=== PATIENT | female | born 1975 | race African-American/Black ===

== ENCOUNTER 2023-07-14 16:00 | Emergency (ER) | payer SELFPAY ==
--- NOTE | ~2023-07-14 | CT_ITS ---
EXAMINATION: CT abdomen pelvis w con DATE: 07/14/2023 17:28 INDICATION: Abdominal pain. TECHNIQUE: Computed tomography (CT) of the abdomen and pelvis was performed with 100 mL Omnipaque 350 intravenous contrast. Automated exposure control and iterative reconstruction technique were employe d. The dose-length product was 733.77 mGy-cm. COMPARISON: None. FINDINGS: The visualized portions of lung bases demonstrate mild atelectasis. No pleural effusion. Th e heart size is normal. No pericardial effusion. The liver and spleen are normal. There are changes o f gastric sleeve procedure. There are changes of cholecystectomy. The pancreas, adrenal glands, and l eft kidney are normal. There is a 10 mm cyst in right kidney. There are no dilated loops of bowel. Th e appendix is normal. There are no pathologically enlarged lymph nodes. There is no free intraperiton eal fluid. There is mild thoracic and lumbar spondylosis. IMPRESSION: 1. No etiology for the patient's symptoms. Reviewed, dictated and finalized at location E.
[2023-07-14 16:26] VITALS: BP 119/75; PULSE 94; RESP 16; TEMP 36.5; O2SAT 100
--- NOTE | 2023-07-14 16:44 | ED.ABDPAIN ---
HPI - Abdominal Pain General Chief Complaint: Abdominal Pain Stated Complaint: abdominal pain Time Seen by Provider: 07/14/23 18:47 Focused HPI: GENERAL: Well-appearing, well-nourished, and in no acute distress. HEAD: Normocephalic, atraumatic. CHEST: Clear to auscultation. No respiratory distress. HEART: Regular rate and rhythm. NEURO: Alert and oriented x3. Patient screened in triage and initial orders placed. Additional care and disposition to be based upon diagnostic testing and treatment. 47-year-old female no medical problems presents to the emergency room for evaluation of diffuse periumbilical abdominal pain is been present for 1 month. Patient states that pain getting worse over the last few days. Patient describes the pain as sharp stabbing pain, that occasionally radiates into bilateral flanks and through to the back. Denies any nausea vomiting diarrhea constipation denies fevers. Has had a history of a gastric sleeve, and x2 C sections. Denies dizziness lightheadedness weakness. Denies chest pain shortness of breath. States has attempted to take [id number] pain medications with no relief. States pain is not worse after eating. Denies any alleviating factors. Related Data Allergies Allergy/AdvReac Type Severity Reaction Status Date / Time No Known Allergies Allergy Verified 07/14/23 19:20 Course Vital Signs Vital signs: Vital Signs Temperature 36.5 C 07/14/23 16:26 Pulse Rate 94 07/14/23 16:26 Respiratory Rate 16 07/14/23 16:26 Blood Pressure 119/75 07/14/23 16:26 Pulse Oximetry 100 07/14/23 16:26 Temperature 36.7 C 07/14/23 19:24 Pulse Rate 65 07/14/23 19:24 Respiratory Rate 16 07/14/23 19:24 Blood Pressure 118/85 07/14/23 19:24 Pulse Oximetry 99 07/14/23 19:24 MDM - Abdominal Pain Lab Data 07/14/23 16:42 07/14/23 16:42 Labs: Lab Results 07/14/23 07/14/23 Range/Units 16:42 16:55 WBC 6.3 (4.5-10.0) K/mm3 RBC 4.28 (4.2-5.4) M/mm3 Hgb 13.2 (12.0-15.0) g/dL Hct 38.8 (37.0-47.0) % MCV 90.7 (80-100) fl MCH 30.8 (26-34) pg MCHC 34.0 (32-36) g/dl RDW 13.9 (11.5-14.5) % Plt Count 282 (150-375) k/mm3 MPV 10.1 (7.4-10.4) fl Immature Gran % (Auto) 0.3 (0-0.5) % Neut % (Auto) 47.7 (45.5-73.1) % Lymph % (Auto) 38.0 (18.3-44.2) % [place] % (Auto) 10.7 H (2.6-8.5) % Eos % (Auto) 2.7 (0-4.4) % Baso % (Auto) 0.6 (0.2-1.2) % Lymph # (Auto) 2.38 (0.9-3.2) K/mm3 [place] # (Auto) 0.7 H (0.1-0.6) K/mm3 Eos # (Auto) 0.2 (0-0.3) K/mm3 Baso # (Auto) 0.0 (0.0-0.1) K/mm3 Abs Immat Gran (auto) 0.02 (0.00-0.031) K/mm3 Absolute Neuts (auto) 3.0 (1.3-6.7) K/mm3 Absolute Nucleated RBC 0.000 (0.0-0.012) K/mm3 Nucleated RBC % 0.0 (0.0-0.2) % Sodium 136 L (137-145) mmol/L Potassium 3.2 L (3.4-5.0) mmol/L Chloride 107 (98-107) mmol/L Carbon Dioxide 25 (22-30) mmol/L Anion Gap 4 (4-12) mmol/L BUN 12 (7-17) mg/dL Creatinine 0.70 (0.7-1.0) mg/dL Estim Creat Clear Calc 99 ml/min Estimated GFR > 60 (59 - ) Glucose 112 H (65-110) mg/dL Calcium 9.1 (8.4-10.2) mg/dL Total Bilirubin 0.3 (0.2-1.3) mg/dL AST 31 (14-36) U/L ALT 18 (6-35) U/L Alkaline Phosphatase 73 (38-126) U/L Total Protein 7.0 (6.3-8.2) g/dL Albumin 4.2 (3.5-5.1) g/dL Lipase 151 (23-300) U/L Urine Color Yellow (Yellow) Urine Appearance Clear (Clear) Urine pH 5.5 (5.0-9.0) Ur Specific [place] 1.024 (1.001-1.035) Urine Protein Negative (Negative) mg/dL Urine Glucose (UA) Negative (Negative) mg/dL Urine Ketones Trace H (Negative) mg/dL Ur Blood (Man) Negative (Negative) Urine Nitrate Negative (Negative) Urine Bilirubin Negative (Negative) Urine Urobilinogen 1.0 (<2.0) mg/dL Leukocyte Esterase Rfl Negative (Negative) MAICOL/UL Imaging Data Radiologist's impression: I
[2023-07-14 16:53] LABS: Basophils Percent Auto 0.6 % (0.2-1.2); Eosinophils Absolute Auto 0.2 K/mm3 (0-0.3); Eosinophils Percent Auto 2.7 % (0-4.4); Hematocrit 38.8 % (37.0-47.0); Hemoglobin 13.2 g/dL (12.0-15.0); Immature Granulocyte Absolute 0.02 K/mm3 (0.00-0.031); Immature Granulocyte Percent A 0.3 % (0-0.5); Lymphocytes Absolute Auto 2.38 K/mm3 (0.9-3.2); Mean Corpuscular Hemoglobin 30.8 pg (26-34); Mean Corpuscular Volume 90.7 fl (80-100); Mean Platelet Volume 10.1 fl (7.4-10.4); Monocytes Absolute Auto 0.7 K/mm3 (0.1-0.6); Monocytes Percent Auto 10.7 % (2.6-8.5); Neutrophils Percent Auto 47.7 % (45.5-73.1); Platelet Count Result 282 k/mm3 (150-375); Red Blood Count 4.28 M/mm3 (4.2-5.4); Red Cell Distribution Width 13.9 % (11.5-14.5); White Blood Count 6.3 K/mm3 (4.5-10.0)
[2023-07-14 17:04] LABS: Alanine Aminotransferase 18 U/L (6-35); Albumin Level 4.2 g/dL (3.5-5.1); Alkaline Phosphatase 73 U/L (38-126); Anion Gap 4 mmol/L (4-12); Aspartate Amino Transferase 31 U/L (14-36); Bilirubin,Total 0.3 mg/dL (0.2-1.3); Blood Urea Nitrogen 12 mg/dL (7-17); Calcium 9.1 mg/dL (8.4-10.2); Carbon Dioxide 25 mmol/L (22-30); Chloride 107 mmol/L (98-107); Estimated CRCL calculation 99 ml/min; Estimated Glomerular Filt Rate > 60; Glucose 112 mg/dL (65-110); Lipase 151 U/L (23-300); Potassium 3.2 mmol/L (3.4-5.0); Sodium 136 mmol/L (137-145)
[2023-07-14 17:12] LABS: Appearance Urine Clear (Clear); Bilirubin Urine Negative (Negative); Blood Urine Negative (Negative); Color Urine Yellow (Yellow); Glucose Urine UA Negative (Negative); Ketones Urine Trace mg/dL (Negative); Leukocyte Esterase Ur Negative LEU/UL (Negative); Nitrate Urine Negative (Negative); Protein Urine Negative (Negative); Specific Grav Ur 1.024 (1.001-1.035); pH Urine 5.5 (5.0-9.0)
[2023-07-14 17:26] LABS: Add Urine Microscopic? NO
[2023-07-14] MEDS: SODIUM CHLORIDE 0.9% IV 1,000 ML 999 ML IV CONT (18:06)
--- NOTE | 2023-07-14 18:52 | ED.ABDPAIN ---
HPI - Abdominal Pain General Chief Complaint: Abdominal Pain Stated Complaint: abdominal pain Time Seen by Provider: 07/14/23 18:47 History of Present Illness HPI narrative: 47 years old female came with the chief complaint of sharp stabbing pain at the mid abdomen over 1 month ago, usually last for few minutes then spontaneously gets better. The symptoms got worse of since yesterday. She denies any fever, chills vomiting diarrhea, constipation, vaginal bleeding or discharge. Patient denies aggravating or relieving factors, does not take meds at home, history of gastric sleeve 2020, does not smoke or drink or use drugs. Related Data Allergies Allergy/AdvReac Type Severity Reaction Status Date / Time No Known Allergies Allergy Verified 07/14/23 19:20 Review of Systems Review of Systems: All systems reviewed & are unremarkable except as noted in HPI and below Exam Narrative: General appearance: Well-developed, well-nourished Skin: Normal color Head: Normocephalic, nontraumatic Eyes: Clear conjunctiva ENT: Oropharynx normal, ears normal, nose normal Neck: Supple, nontender Chest and respiratory: Airway patent, no respiratory distress, no accessory muscle use Heart: Regular rate/rhythm Abdomen: Soft, Diffusely tender, no organomegaly, quiet bowel sounds Vascular: Normal peripheral pulses, normal capillary refill. Musculoskeletal: Normal range of motion, nontender back Neurologic: Alert and oriented ?3, [employer] is normal as tested, no gross motor deficit Course Vital Signs Vital signs: Vital Signs Temperature 36.5 C 07/14/23 16:26 Pulse Rate 94 07/14/23 16:26 Respiratory Rate 16 07/14/23 16:26 Blood Pressure 119/75 07/14/23 16:26 Pulse Oximetry 100 07/14/23 16:26 Temperature 36.5 C 07/14/23 16:26 Pulse Rate 94 07/14/23 16:26 Respiratory Rate 16 07/14/23 16:26 Blood Pressure 119/75 07/14/23 16:26 Pulse Oximetry 100 07/14/23 16:26 MDM - Abdominal Pain MDM Narrative Medical decision making narrative: patient presents with sharp abdominal pain, differential diagnosis include constipation, gastritis, pancreatitis, colitis, diverticulitis, stress try reaction Blood workup today showed no significant abnormality to explain patient condition, potassium is 3.2, [address] scan of the abdomen and pelvis showed no significant abnormality to explain patient condition Discharged on dicyclomine, Protonix and potassium supplement, follow-up with Dr. Rowland for further evaluation Patient works as OR nurse at [employer] the pt was discharged to home.the pt,s condition upon discharge was fair,education was provided to the pt in reference to the final impression,discharge study results,treatment,prognosis and need for follow up . Differential Diagnosis Differential diagnosis: Likely other ( as above) Medical Records Attestation: I reviewed the patient's medical records. Lab Data Attestation: I reviewed the patient's lab results. 07/14/23 16:42 07/14/23 16:42 Labs: Lab Results 07/14/23 07/14/23 Range/Units 16:42 16:55 WBC 6.3 (4.5-10.0) K/mm3 RBC 4.28 (4.2-5.4) M/mm3 Hgb 13.2 (12.0-15.0) g/dL Hct 38.8 (37.0-47.0) % MCV 90.7 (80-100) fl MCH 30.8 (26-34) pg MCHC 34.0 (32-36) g/dl RDW 13.9 (11.5-14.5) % Plt Count 282 (150-375) k/mm3 MPV 10.1 (7.4-10.4) fl Immature Gran % (Auto) 0.3 (0-0.5) % Neut % (Auto) 47.7 (45.5-73.1) % Lymph % (Auto) 38.0 (18.3-44.2) % [place] % (Auto) 10.7 H (2.6-8.5) % Eos % (Auto) 2.7 (0-4.4) % Baso % (Auto) 0.6 (0.2-1.2) % Lymph # (Auto) 2.38 (0.9
[2023-07-14] MEDS: Please add drug allergy info to patient profile. 1 EACH XX (19:21)
[2023-07-14] MEDS: POTASSIUM CHLORIDE 20 MEQ PACKET (FOR LIQUID) 40 MEQ PO (19:21)
[2023-07-14 19:24] VITALS: BP 118/85; PULSE 65; RESP 16; TEMP 36.7; O2SAT 99
== END 2023-07-14 19:47 | disposition home or self-care (01) ==
LOC: ANHED 19:41
PROVIDERS: Nurse Practitioner Family; Emergency Provider Emergency Medicine
DX: R10.9 Unspecified abdominal pain (principal); E87.6 Hypokalemia
CPT/HCPCS: 36415; 74177; 80053; 81003; 81025; 83690; 85025; 96360; 99284; A9270; J7030; Q9967

== ENCOUNTER 2025-03-24 06:04 | Emergency (ER) | payer OTHER, SELFPAY ==
[2025-03-24] VITALS (29 sets, daily range): BP systolic 91–124; BP diastolic 51–84; PULSE 70–86; RESP 12–21; TEMP 36.6; O2SAT 97–100
--- NOTE | ~2025-03-24 | US_ITS ---
EXAMINATION: US pelvic complete w TV DATE: 03/24/2025 09:26 INDICATION: Heavy vaginal bleeding TECHNIQUE: Multiple transabdominal and endovaginal sonographic images of the pelvis were obtained. COMPARISON: None. FINDINGS: The uterus measures 13.0 x 6.9 x 7.2 cm. There is thickening of the endometrial complex which measures 3.2 cm in thickness inclusive of a small amount of anechoic fluid in the fundal side of the endometrial canal and a 4.5 x 3.2 x 2.0 cm region of echogenic material without internal vascular flow more caudally in the endometrial canal which given the provided history of heavy vaginal bleeding likely represents clot. The endometrial complex measures approximately 1.3 cm exclusive of the endometrial fluid and internal echogenic material. section scar along the anterior lower uterine segment. Multiple anechoic nabothian cysts at the cervix. There is also a 3.5 x 3.0 x 2.4 cm heterogeneous cervical mass with internal vascular flow on color Doppler located to the right of the nabothian cysts. The right ovary measures 2.5 x 2.0 x 1.5 cm. The left ovary measures 3.3 x 3.1 x 2.6 cm. 2.1 x 1.7 cm anechoic cyst/follicle in the left ovary. Vascular flow identified in both ovaries on color Doppler. There is minimal amount of likely physiologic anechoic free fluid in the cul-de-sac. IMPRESSION: 1. 3.5 cm soft tissue mass at the cervix which could represent a cervical fibroid or malignancy. Recommend gynecologic evaluation. 2. Anechoic fluid and echogenic avascular material likely represent clot within the endometrial canal. Exclusive of the endometrial contents the endometrial complex measures 1.3 cm in thickness. Reviewed, dictated and finalized at location A. RN GREEK STUDIES PROFESSOR IMPRESSION: 1. 3.5 cm soft tissue mass at the cervix which could represent a cervical fibro id or malignancy. Recommend gynecologic evaluation. 2. Anechoic fluid and echogenic avascular material likely represent clot within the endometrial canal. Exclusive of the endometrial contents the endometrial c omplex measures 1.3 cm in thickness.
--- OUTSIDE RECORDS SUMMARY | 2025-03-24 06:06 | XMS_ITS | Continuity of Care Document ---
Author Organization [facility] (Adult [facility]) Address [address] [place] [address] Assessment No assessment recorded. Plan of Treatment Reminders Order Date Submit Date Provider Last Modified By Organization Details Last Modified Time Details Appointments ANY 30 2025 08:30A Lesly Donis MD Not available Not available Not available Lab TSH, ultra-sen sitive, serum 2024 025 [facility], [address] [place] [address], [address], [place], [address], 03/20/2025 11:14:05 FSH (follicle -stimulat ing hormone), serum 2024 025 [facility], [address], [address], [place], [address], 03/20/2025 11:14:05 estradiol , serum 2024 025 [facility], [address] [place], [place] [address], [address], [place], [address], 03/20/2025 11:14:06 CBC 2024 025 [facility], [address], [address], [place], [address], 03/19/2025 17:01:17 HCG, intact + beta subunit, quant, serum or plasma 2024 [facility], [address] [facility], [address], [place], [address], 03/20/2025 11:14:06 Referral None recorded. Procedures None recorded. Surgeries None recorded. Imaging US, pelvis, transabdo nirmal + transvagi nal 2024 [facility] ([facility]), [address], [place], [address], 03/20/2025 11:36:17 Medication Orders Naprosyn 500 mg tablet 2024 [id number], [address], [place], [place], [id number], 03/19/2025 14:29:29 Patient TargetsNo targets recorded. Patient InstructionsNo instructions recorded. Reason for Referral None Reported. Results Created Date Observation Date Name Description Value Unit Range Abnormal Flag Note LastModifiedBy Organization Detail LastModifiedTime 03/04/2003/05/2025 NUSWA B VG+, MARY ANN DA 6SP atopobium vaginae MODERA TE - 1 score Not Available [facility] ([facility]) [address] [place], [address], 03/06/2025 07:22:41 03/04/20 25 03/05/2025 NUSWA B VG+, MARY ANN DA 6SP bvab 2 MODERA TE - 1 score Not Available [facility] ([facility]) [address] [place], [address], 03/06/2025 07:22:41 03/04/20 25 03/05/2025 NUA B VG+, MARY ANN DA 6SP megasphaera 1 HIGH - 2 score abnormal Calcu late total score by jhoan ervin the 3 indiv idual bacte rial vagin osis (BV) marke r score s toget her. Total score is inter prete d as follo ws: Total score 0-1: Indic ates the absen ce of BV. Total score 2: Indet ermin ate for BV. Addit ional clini laurent data shoul d be evalu ated to estab ly gill. Total score 3-6: Indic ates the prese nce of BV. Not Available [facility] ([facility]) [address] [place], [address], 03/06/2025 07:22:41 03/04/20 25 03/05/2025 NUSWA B VG+, MARY ANN DA 6SP bill albicans, BONIFACIO NEGATI VE negati ve Not Available [facility] ([facility]) [address] [place], [address], 03/06/2025 07:22:41 03/04/20 25 03/05/2025 NUSWA B VG+, MARY ANN DA 6SP bill glabrata, BONIFACIO NEGATI VE negati ve Not Available [facility] ([facility]) [address] [place], [address], 03/06/2025 07:22:41 03/04/2003/06/2025 NUSWA B VG+, MARY ANN DA 6SP C parapsilosis /tropicalis NEGATI VE negati ve This assay does not diffe renti ate C. tropi calis and C. parap timi is. Not Available [facility] ([facility]) [address], [place], [address], 03/06/2025 07:22:41 03/04/20 25 03/06/2025 NUSWA B VG+, MARY ANN DA 6SP bill lusitaniae, BONIFACIO NEGATI VE negati ve Not Available [facility] ([facility]) [address] [place], [address], 03/06/2025 07:22:41 03/04/20 25 03/06/2025 NUSWA B VG+, MARY ANN DA 6SP bill krusei, BONIFACIO NEGATI VE negati ve Not Available [facility] ([facility]) [address], [place], [address], 03/06/2025 07:22:41 03/04/2003/06/2025 NUSWA B VG+, MARY ANN DA 6SP trich vag by BONIFACIO NEGATI VE negati ve Not Available [facility] ([facility]) [address], [place], [address], 03/06/2025 07:22:41 03/04/2003/06/2025 NUSWA B VG+, MARY ANN DA 6SP chlamydia trachomatis, BONIFACIO NEGATI VE negati ve Not Available [facility] ([facility]) [address], [place], [address], 03/06/2025 07:22:41 03/04/2003/06/2025 NUA B VG+, MARY ANN DA 6SP neisseria gonorrhoeae, BONIFACIO NEGATI VE negati ve Not Available [facility] ([facility]) [address], [place], [address], 03/06/2025 07:22:41 03/19/20 25 03/19/2025 CBC, PLATE LET, NO DIFFE RENTI AL WBC 5.7 x10e9 /L 4.0-10 .7 Not Available [facility] (Surgery Scheduling) [address] , [place], [address], 03/19/2025 17:01:17 03/19/20 25 03/19/2025 CBC, PLATE LET, NO DIFFE RENTI AL RBC 3.15 x10e1 2/L 3.90-5 .20 below low normal Not Available [facility] (Surgery Scheduling) [address], [place], [address], 03/19/2025 17:01:17 03/19/20 25 03/19/2025 CBC, PLATE LET, NO DIFFE RENTI AL hemoglobin 8.2 g/dL 11.9-1 5.8 below low normal Not Available [facility] (Surgery Scheduling) [address], [place], [address], 03/19/2025 17:01:17 03/19/20 25 03/19/2025 CBC, PLATE LET, NO DIFFE RENTI AL hematocrit 26.3 % 34.8-4 6.1 below low normal Not Available [facility] (Surgery Scheduling) [address], [place], [address], 03/19/2025 17:01:17 03/19/20 25 03/19/2025 CBC, PLATE LET, NO DIFFE RENTI AL MCV 83.5 fL 80.0-9 8.0 Not Available [facility] (Surgery Scheduling) [address], [place], [address], 03/19/2025 17:01:17 03/19/20 25 03/19/2025 CBC, PLATE LET, NO DIFFE RENTI AL MCH 26.0 pg 26.7-3 3.6 below low normal Not Available [facility] (Surgery Scheduling) [address], [place], [address], 03/19/2025 17:01:17 03/19/20 25 03/19/2025 CBC, PLATE LET, NO DIFFE RENTI AL MCHC 31.2 g/dL 31.7-3 6.3 below low normal Not Available [facility] (Surgery Scheduling) [address], [place], [address], 03/19/2025 17:01:17 03/19/20 25 03/19/2025 CBC, PLATE LET, NO DIFFE RENTI AL RDW 17.1 % 11.3-1 4.8 above high normal Not Available [facility] (Surgery Scheduling) [address], [place], [address], 03/19/2025 17:01:17 03/19/20 25 03/19/2025 CBC, PLATE LET, NO DIFFE RENTI AL platelets 429 x10e9 /L 150-42 0 above high normal Not Available [facility] (Surgery Scheduling) [address] , [place], [address], 03/19/2025 17:01:17 03/19/20 25 03/20/2025 TSH RFX ON ABNOR MAL TO FREE T4 TSH 0.931 uIU/m L 0.450- 4.500 Not Available [facility] ([facility]) [address] [place], [address], 03/20/2025 11:14:05 03/19/2003/20/2025 FSH FSH 6.3 mIU/m L Adult Femal e Range Folli cular phase 3.5 - 12.5 Ovula tion phase 4.7 - 21.5 Lutea l phase 1.7 - 7.7 Postm enopa usal 25.8 - 134.8 Not Available [facility] ([facility]) [address], [place], [address], 03/20/2025 11:14:05 03/19/20 25 03/20/2025 HCG,B ETA SUBUN IT, QNT HCG,beta subunit,qnt, serum <1 mIU/m L Femal e (Non- pregn ant) 0 - 5 (Post menop ausal ) 0 - 8 Femal e (Preg nant) Weeks of Gesta tion 3 6 - 71 4 10 - 750 5 385 - 6638 6 158 - 54800 7 1125 -1814 63 8 30900 -5673 71 9 36133 -6984 10 10 01530 -3930 77 12 74329 -7590 12 14 75154 - 84499 15 43939 - 22441 16 1785 - 02091 17 5770 - 85217 18 7217 - 22240 Jac ECLIA metho dolog y Not Available [facility] ([facility]) [address] [place], [address], 03/20/2025 11:14:06 03/19/2003/20/2025 ESTRA DIOL estradiol 115.0 pg/mL Adult Femal e Range Folli cular phase 12.5 - 166.0 Ovula tion phase 85.8 - 498.0 Lutea l phase 43.8 - 211.0 Postm enopa usal <6.0 - 54.7 Pregn bhanu 1st trime ster 215.0 - >4300 .0 Jac ECLIA metho dolog y Not Available [facility] ([facility]) [address], [place], [address], 03/20/2025 11:14:06 03/19/20 25 03/19/2025 CBC w/ auto diff WBC, auto, blood 5.7 text: 4.0 - 10.7 x10e9/ L Not Available Not Available 03/20/2025 16:33:52 03/19/20 25 03/19/2025 CBC w/ auto diff RBC count, blood 3.15 text: 3.90 - 5.20 x10e12 /L low Not Available Not Available 03/20/2025 16:33:52 03/19/20 25 03/19/2025 CBC w/ auto diff hemoglobin (Hb), blood 8.2 g/dL low: 11.9g/ dLhigh : 15.8g/ dL low Not Available Not Available 03/20/2025 16:33:52 03/19/20 25 03/19/2025 CBC w/ auto diff hematocrit, automated count, blood 26.3 % low: 34.8%h igh: 46.1% low Not Available Not Available 03/20/2025 16:33:52 03/19/20 25 03/19/2025 CBC w/ auto diff MCV, blood 83.5 fL low: 80fLhi gh: 98fL Not Available Not Available 03/20/2025 16:33:52 03/19/20 25 03/19/2025 CBC w/ auto diff MCH, qn, automated (obs) 26 pg low: 26.7pg high: 33.6pg low Not Available Not Available 03/20/2025 16:33:52 03/19/20 25 03/19/2025 CBC w/ auto diff MCHC, qn, automated (obs) 31.2 g/dL low: 31.7g/ dLhigh : 36.3g/ dL low Not Available Not Available 03/20/2025 16:33:52 03/19/20 25 03/19/2025 CBC w/ auto diff erythrocyte distribution width, ratio, automated (obs) 17.1 % low: 11.3%h igh: 14.8% high Not Available Not Available 03/20/2025 16:33:52 03/19/20 25 03/19/2025 CBC w/ auto diff platelets, auto, blood 429 text: 150 - 420 x10e9/ L high Not Available Not Available 03/20/2025 16:33:52 03/19/20 25 03/19/2025 CBC w/ auto diff platelet mean volume, qn, automated, blood (obs) 9.8 fL low: 7.8fLh igh: 11.4fL Not Available Not Available 03/20/2025 16:33:52 03/19/20 25 03/19/2025 CBC w/ auto diff neutrophils/ 100 leukocytes, automated, blood (obs) 44 % low: 41%hig h: 74% Not Available Not Available 03/20/2025 16:33:52 03/19/20 25 03/19/2025 CBC w/ auto diff lymphocytes/ 100 leukocytes, automated, blood (obs) 42.3 % low: 17%hig h: 47% Not Available Not Available 03/20/2025 16:33:52 03/19/20 25 03/19/2025 CBC w/ auto diff monocytes/10 0 leukocytes, automated, blood (obs) 9.5 % low: 3%high : 11% Not Available Not Available 03/20/2025 16:33:52 03/19/20 25 03/19/2025 CBC w/ auto diff eosinophils/ 100 leukocytes, automated, blood (obs) 2.8 % low: 0%high : 7% Not Available Not Available 03/20/2025 16:33:52 03/19/20 25 03/19/2025 CBC w/ auto diff basophils/10 0 leukocytes, automated, blood (obs) 1.2 % low: 0%high : 1.6% Not Available Not Available 03/20/2025 16:33:52 03/19/20 25 03/19/2025 CBC w/ auto diff immature granulocytes /100 leukocytes, automated, blood (obs) 0.2 % low: 0%high : 1% Not Available Not Available 03/20/2025 16:33:52 03/19/20 25 03/19/2025 CBC w/ auto diff neutrophil count, absolute (anc), blood (obs) 2.5 text: 1.60 - 7.50 x10e9/ L Not Available Not Available 03/20/2025 16:33:52 03/19/20 25 03/19/2025 CBC w/ auto diff lymphocytes, quantitative , blood, automated count (obs) 2.4 text: 1.00 - 4.40 x10e9/ L Not Available Not Available 03/20/2025 16:33:52 03/19/20 25 03/19/2025 CBC w/ auto diff monocytes, count, automated, blood (obs) 0.54 text: 0.15 - 1.00 x10e9/ L Not Available Not Available 03/20/2025 16:33:52 03/19/20 25 03/19/2025 CBC w/ auto diff eosinophils, quant, blood 0.16 text: 0.00 - 0.60 x10e9/ L Not Available Not Available 03/20/2025 16:33:52 03/19/20 25 03/19/2025 CBC w/ auto diff basophils, quant, auto, blood (obs) 0.07 text: 0.00 - 0.13 x10e9/ L Not Available Not Available 03/20/2025 16:33:52 03/19/20 25 03/19/2025 CBC w/ auto diff lab interpretati on Abnorm al Not Available Not Available 16:33:52 Result Notes None recorded. Procedures Surgical History Date Name Laterality Status Provider Name and Address Organization Details Recorded Time Gastric Bypass completed REGINALD Louis - [facility] 01/17/2023 15:45:13 [facility] 15:45:25 Imaging Results None recorded. Procedure Notes None recorded. Medical Equipment None Reported. Allergies No known drug allergies Medications Name Sig Start Date Stop Date Status Note LastModified by Organization Details LastModified Time ofloxacin 0.3 % eye drops INSTILL 2 TO 3 DROPS IN AFFECTED EYE TWICE DAILY 12/18 completed Not Available Not Available Not Available metronidazo le 500 mg tablet TAKE 1 TABLET BY MOUTH TWICE DAILY 03/19 completed Not Available Not Available Not Available sulfamethox azole 800 mg-trimetho prim 160 mg tablet TAKE 1 TABLET BY MOUTH TWICE DAILY FOR 5 DAYS 12/18 completed Not Available Not Available Not Available phenazopyri dine 100 mg tablet TAKE 2 TABLETS BY MOUTH THREE TIMES DAILY FOR 2 DAYS 07/09 completed Not Available Not Available Not Available cephalexin 500 mg capsule TAKE 1 CAPSULE BY MOUTH FOUR TIMES DAILY 07/09 completed Not Available Not Available Not Available oseltamivir 75 mg capsule TAKE 1 CAPSULE BY MOUTH TWICE DAILY active Not Available Not Available No t Available ergocalcife rol (vitamin D2) 1,250 mcg (50,000 unit) capsule TAKE 1 CAPSULE BY MOUTH EVERY 7 DAYS active Not Available Not Available No t Available Naprosyn 500 mg tablet one tab po bid with food 2024 active Not Available Not Available Not Avai lable nitrofurant oin monohydrate /macrocryst als 100 mg capsule TAKE 1 CAPSULE BY MOUTH EVERY 12 HOURS FOR 10 DAYS 03/19 completed Not Available Not Available Not Available Iron (ferrous sulfate) active Not Available Not Available Not Available tirzepatide 5 mg/0.5 mL subcutaneou s pen injector 5 mg subcu once a week 2024 active Not Available Not Available Not Avai lable Mounjaro 2.5 mg/0.5 mL subcutaneou s pen injector active Not Available Not Available Not Available Zepbound 5 mg/0.5 mL subcutaneou s pen injector ADMINISTE R 5 MG UNDER THE SKIN EVERY WEEK active Not Available Not Available No t Available Zepbound 2.5 mg/0.5 mL subcutaneou s pen injector ADMINISTE R 2.5 MG UNDER THE SKIN EVERY WEEK active Not Available Not Available No t Available Vitals Date Recorded Body height Body mass index (BMI) Body weight Respiratory rate Oxygen saturation Heart rate Body temperature Systolic And Diastolic Provider Name and Address Organization Details Last Updated DateTime 165.1 cm 31.5 kg/m2 14531.9 6 g 16 /min 100 % 90 /min 98.1 [degF] 116/70 mm[Hg] Crystal Szymanski MA [place] [facility] [place] 14:11:29 Social History Question Answer Notes LastModified by Organizat ion Details LastModified Time Tobacco Smoking Status Never Smoker Crystal Szymanski MA null, [facility] 01/17/2023 15:44:41 What Is Your Level Of Caffeine Consumption? Occasional Information not available 01/17/2023 What Was The Date Of Your Most Recent Tobacco Screening? 03/19/2025 Information not available 03/19/2025 Has Tobacco Cessation Counseling Been Provided? Yes [email or web address] Information not available 07/09/2024 On What Date Was Tobacco Cessation Counseling Provided? 03/19/2025 Information not available 03/19/2025 Sex: Unknown Functional Status Question Answer Note LastModified by Organizat ion Details LastModified Time Do you use any illicit or recreational drugs? No Information not available 01/17/2023 What is your level of alcohol consumption? None Information not available 01/17/2023 Mental Status None recorded. Family History Relationship Description Onset Age of this Age Resolved Age Notes LastModified by Organization Details LastModified Time Sister Malignant neoplasm of breast [email or web address] Not available 2022 15:42:23 Maternal Aunt Malignant neoplasm of cervix uteri [email or web address] Not available 15:42:50 Mother Malignant neoplasm of breast 55 [email or web address] Not available 2022 15:43:05 Maternal Grandfather Diabetes mellitus [email or web address] Not available 2022 15:43:45 Maternal Uncle Diabetes mellitus [email or web address] Not available 2022 15:43:45 Maternal Uncle Hypertensive disorder [email or web address] Not available 2022 15:44:15 Father Hypertensive disorder [email or web address] Not available 2022 15:44:05 Medical History Condition Response Coronary Artery Disease N Other N Atrial Fibrillation N High Blood Pressure N Thyroid Problems N Kidney or Bladder Problems N GI Problems N Depression N COPD N Blood Clots N Eating Disorder N Skin Problems N Anemia N Heart Attack (MT) N Diabetes N Anxiety Disorder N Muscle, Joint, or Bone Problems N Seizures/Epilepsy N Acid Reflux (GERD) N Cancer N Stroke N Asthma N Allergies N ADHD N Substance Abuse N High Cholesterol N Hepatitis N Liver Disease N Schizophrenia N Headaches N Osteoporosis N Heart Failure N Gynecological History Statement/Question Response Flow Heavy Date of LMP 01/01/2023 Frequency of Cycle (Q days) 28 Menses Monthly Y Date of Last Pap Smear Duration of Flow (days) 5 Current Control Method Tubal Ligat ion LMP Definite Obstetrics History GPAL:G 3 P 0 0 0 3 Type Value Multiple Births 0 Full Term 0 Induced 0 Spontaneous 0 Premature 0 Living 3 Ectopics 0 Total 3 Immunizations Vaccine Type Date Status Note Provider Nam e and Address Organization Details Recorded Time OPV, trivalent 8 completed Not Available Pending sale to [facility] 03/19/2025 14:03:59 DTP 8 completed Not Available [facility] 03/19/2025 14:03:59 DTP 8 completed Not Available [facility]ending sale to [facility] 03/19/2025 14:03:59 DTP 8 completed Not Available [facility]ending sale to [facility] 03/19/2025 14:03:59 OPV, trivalent 8 completed Not Available [facility]ending [facility] to [facility] 03/19/2025 14:03:59 MMR 0 completed Not Available [facility]ending [facility] to [facility] 03/19/2025 14:03:59 OPV, trivalent 0 completed Not Available [facility]ending [facility] to [facility] 03/19/2025 14:03:59 DTP 0 completed Not Available [facility]ending [facility] to [facility] 03/19/2025 14:03:59 Td (adult), 2 Lf tetanus toxoid, preservative free, adsorbed 1 completed Not Available [facility] to [facility] 03/19/2025 14:03:59 MMR 5 completed Not Available [facility] 03/19/2025 14:03:59 OPV, trivalent 5 completed Not Available [facility] 03/19/2025 14:03:59 Hep B, adult 1 completed Not Available [facility] 03/19/2025 14:03:59 Hep B, adult 2 completed Not Available [facility] 03/19/2025 14:03:59 Hep B, adult 3 completed Not Available [facility] 03/19/2025 14:03:59 Influenza, split virus, trivalent, preservative 3 completed [facility] 03/[facility] 14:03:59 Past Encounters Encounter ID Performer Location Encounter Start Date Encounter Closed Date Diagnosis/Indication Diagnosis SNOMED-CT Code Diagnosis ICD10 Code Diagnosis IMO Codes Diagnosis Note [id number] MD [facility]ery (Adult Med) [address] [place] [phone] 03/04/2025 14:19:58 03/07/2025 03:47:44 [id number] MD [facility] (Adult Med) [address] [place] [phone] 0 03/19/2025 14:00:26 03/20/2025 09:29:39 Menorrhagia 045408629 N92.0 [id number] Heavy vaginal bleeding and passing clots. Will check TSH to rule out thyroid issues and FSH and estradiol to check for perimenopa use. Will check CBC for anemia and to see if she would be a candidate for a transfusio n. Will have her try Naprosyn 500 mg BID with food. Will give her an excuse from work tomorrow. If the work up is negative for any systemic or anatomic cause would suspect this is due to perimenopa usal changes and we will discuss hormone treatment. If Naprosyn doesn't decrease the bleeding she will let me know. Health Concerns Section Related Observation LastModified by Organization Detai ls LastModified Time None Recorded Concern Status LastModified by Organization Details LastModified Time None Recorded Payers Encounter Date Sequence Insurance Name Policy Number Policy Doll Covered Member ID Doll Member ID Guarantor Name 03/19/2025 1 [place] [id number] Jennifer Pang [id number] 1 Jennifer Pang Notes Date Note Type Note Provider Name and Address Organization Details Recorded Time 03/19/2025 text/html ROS as noted in the HPI has missed a period before and came back heavy but not like this, didn't have a period in January, had a period on February, was spotty and then the picked up, changing pad about every three hours, today was in chair at work in office, bled on clothes, clots, headache, no dizziness, nonsmoker, no history of blood clots, Simran Donis MD Attn: Accounting,[address] [facility], [place], [address], [place] 03/19/2025 14:34:41 OBGyn Episode No OBEpisode recorded.
--- OUTSIDE RECORDS SUMMARY | 2025-03-24 06:06 | XMS_ITS | Data Portability ---
Author Organization [facility] Address [address] [place] [address] Assessment Encounter Date Assessment Date Assessment LastModified by Organization Details LastModified Time 01/22/2025 01/22/2025 Nuswab ordered. [email or web address] Not available 01/22/2025 18:11:35 03/04/2025 03/04/2025 Patient came in for a nuswab for vaginal odor [email or web address] Not available 03/05/2025 11:52:11 Plan of Treatment Reminders Order Date Submit Date Provider Last Modified By Organization Details Last Modified Time Details Appointments ANY 30 2025 08:30A Lesly Donis MD Not available Not available Not available Lab TSH, ultra-sen sitive, serum 2024 025 [facility], [address] [place] [address], [facility] [address], [place], [address], 03/20/2025 11:14:05 FSH (follicle -stimulat ing hormone), serum 2024 025 [facility], [address] [place] [address], [address], [place], [address], 03/20/2025 11:14:05 estradiol , serum 2024 025 [facility], [address] [place] [address], [address], [place], [address], 03/20/2025 11:14:06 CBC 2024 025 [facility], [address], [address], [place], [address], 03/19/2025 17:01:17 HCG, intact + beta subunit, quant, serum or plasma 2024 025 [facility], [address], [address], [place], [address], 03/20/2025 11:14:06 urinalysi s complete, reflex culture 2024 025 [facility], [address], [address], [place], [address], 07/17/2024 06:37:06 lipid panel, serum 2024 025 [facility], [address], [address], [place], [address], 06/06/2024 08:28:31 BMP, serum or plasma - fasting 2024 025 [facility], [address], [address], [place], [address], 06/06/2024 08:28:32 HbA1c (hemoglob in A1c), blood 2024 025 [facility], [address], [address], [place], [address], 06/06/2024 08:28:34 Referral plastic surgeon referral 2024 025 [facility], [address] [place] [address] [place], [address], 01/09/2025 14:43:03 Procedures None recorded. Surgeries None recorded. Imaging US, pelvis, transabdo nirmal + transvagi nal 2024 025 [facility] ([facility]), [address], [place], [address], 03/20/2025 11:36:17 MRI, breast, bilateral , w/wo contrast - mother and sister premenopa usal breast cancer 2024 025 ilesfl [facility], [address] [facility], [address], [address], 05/31/2024 12:32:34 Medication Orders Naprosyn 500 mg tablet 2024 025 [facility][id number], [address], [place], [place], [id number], 03/19/2025 14:29:29 tirzepati de 2.5 mg/0.5 mL subcutane ous pen injector 2024 025 [facility] #[id number], [address], [place], [place], [id number], 07/09/2024 11:26:14 tirzepati de 5 mg/0.5 mL subcutane ous pen injector 2024 025 [facility][id number], [address] [facility], [place], [place], [id number], 07/09/2024 11:26:13 Patient TargetsNo targets recorded. Patient InstructionsNo instructions recorded. Reason for Referral Plastic Surgeon Referral for Macromastia Referring Physician: Simran Donis, Family Medicine, Encounter Date: 07/09/2024 Results Created Date Observation Date Name Description Value Unit Range Abnormal Flag Note LastModifiedBy Organization Detail LastModifiedTime 06/06/19 25 06/06/2024 LIPID PANEL cholesterol, total 197 mg/dL 100-19 9 Not Available [facility] ([facility]) [address] [facility], [place], [address], 06/06/2024 08:28:31 06/06/19 25 06/06/2024 LIPID PANEL triglyceride s 93 mg/dL 0-149 Not Available [facility] ([facility]) [address] [place], [address], 06/06/2024 08:28:31 06/06/19 25 06/06/2024 LIPID PANEL HDL cholesterol 64 mg/dL >39 Not Available [facility] ([facility]) [address] [place], [address], 06/06/2024 08:28:31 06/06/19 25 06/06/2024 LIPID PANEL VLDL cholesterol laurent 17 mg/dL 5-40 Not Available [facility] ([facility]) [address] [place], [address], 06/06/2024 08:28:31 06/06/19 25 06/06/2024 LIPID PANEL LDL chol calc ([facility]) 116 mg/dL 0-99 above high normal Not Available [facility] ([facility]) [address] [place], [address], 06/06/2024 08:28:31 06/06/19 25 06/06/2024 BASIC METAB OLIC PANEL (8) glucose 81 mg/dL 70-99 Not Available [facility] ([facility]) [address] [place], [address], 06/06/2024 08:28:32 06/06/19 25 06/06/2024 BASIC METAB OLIC PANEL (8) BUN 9 mg/dL 6-24 Not Available [facility] ([facility]) [address] [place], [address], 06/06/2024 08:28:32 06/06/19 25 06/06/2024 BASIC METAB OLIC PANEL (8) creatinine 0.76 mg/dL 0.57-1 .00 Not Available [facility] ([facility]) [address] [facility], [place], [address], 06/06/2024 08:28:32 06/06/19 25 06/06/2024 BASIC METAB OLIC PANEL (8) eGFR 98 mL/mi n/1.7 3 >59 Not Available [facility] ([facility]) [address] [facility], [place], [address], 06/06/2024 08:28:32 06/06/19 25 06/06/2024 BASIC METAB OLIC PANEL (8) BUN/creatini ne ratio 12 9-23 Not Available [facility] ([facility]) [address] [facility], [place], [address], 06/06/2024 08:28:32 06/06/19 25 06/06/2024 BASIC METAB OLIC PANEL (8) sodium 138 mmol/ L 134-14 4 Not Available [facility] ([facility]) [address] [facility], [place], [address], 06/06/2024 08:28:32 06/06/19 25 06/06/2024 BASIC METAB OLIC PANEL (8) potassium 4.5 mmol/ L 3.5-5. 2 Not Available [facility] ([facility]) [address] [facility], [place], [address], 06/06/2024 08:28:32 06/06/19 25 06/06/2024 BASIC METAB OLIC PANEL (8) chloride 101 mmol/ L 96-106 Not Available [facility] ([facility]) [address] [facility], [place], [address], 06/06/2024 08:28:32 06/06/19 25 06/06/2024 BASIC METAB OLIC PANEL (8) carbon dioxide, total 23 mmol/ L 20-29 Not Available [facility] ([facility]) [address] [facility] [place], [address], 06/06/2024 08:28:32 06/06/19 25 06/06/2024 BASIC METAB OLIC PANEL (8) calcium 9.4 mg/dL 8.7-10 .2 Not Available [facility] ([facility]) [address] [facility], [place], [address], 06/06/2024 08:28:32 06/06/19 25 06/06/2024 HEMOG LOBIN A1C hemoglobin A1C 5.9 % 4.8-5. 6 above high normal Predi abete s: 5.7 - 6.4 Diabe brenda: >6.4 Glyce wendy contr ol for adult s with diabe brenda: <7.0 Not Available [facility] ([facility]) [address] [facility], [place], [address], 06/06/2024 08:28:34 07/17/19 25 07/17/2024 MICRO SCOPI C EXAMI NATIO N WBC None seen /hpf 0-5 Not Available [facility] ([facility]) [address] [facility], [place], [address], 07/17/2024 06:37:05 07/17/19 25 07/17/2024 MICRO SCOPI C EXAMI NATIO N RBC None seen /hpf 0-2 Not Available [facility] ([facility]) [address] [facility], [place], [address], 07/17/2024 06:37:05 07/17/19 25 07/17/2024 MICRO SCOPI C EXAMI NATIO N epithelial cells (non renal) 0-10 /hpf 0-10 Not Available [facility] ([facility]) [address] [facility], [place], [address], 07/17/2024 06:37:05 07/17/19 25 07/17/2024 MICRO SCOPI C EXAMI NATIO N casts None seen /lpf nonese en Not Available [facility] ([facility]) [address] [facility], [place], [address], 07/17/2024 06:37:05 07/17/19 25 07/17/2024 MICRO SCOPI C EXAMI NATIO N bacteria None seen nonese en/few Not Available [facility] ([facility]) [address] [facility], [place], [address], 07/17/2024 06:37:05 07/17/19 25 07/17/2024 UA/M W/RFL X CULTU RE, ROUTI NE specific gravity 1.008 1.005- 1.030 Not Available [facility] ([facility]) [address] [facility], [place], [address], 07/17/2024 06:37:06 07/17/19 25 07/17/2024 UA/M W/RFL X CULTU RE, ROUTI NE pH 6.0 5.0-7. 5 Not Available [facility] ([facility]) [address] [facility], [place], [address], 07/17/2024 06:37:06 07/17/19 25 07/17/2024 UA/M W/RFL X CULTU RE, ROUTI NE urine-color YELLOW yellow Not Available [facility] ([facility]) [address] [facility], [place], [address], 07/17/2024 06:37:06 07/17/19 25 07/17/2024 UA/M W/RFL X CULTU RE, ROUTI NE appearance CLEAR clear Not Available [facility] ([facility]) [address] [place], [address], 07/17/2024 06:37:06 07/17/19 25 07/17/2024 UA/M W/RFL X CULTU RE ROUTI NE WBC esterase NEGATI VE negati ve Not Available [facility] ([facility]) [address] [facility], [place], [address], 07/17/2024 06:37:06 07/17/19 25 07/17/2024 UA/M W/RFL X CULTU RE, ROUTI NE protein NEGATI VE negati ve/tra ce Not Available [facility] ([facility]) [address] [place], [address], 07/17/2024 06:37:06 07/17/19 25 07/17/2024 UA/M W/RFL X CULTU RE, ROUTI NE glucose NEGATI VE negati ve Not Available [facility] ([facility]) [address] [place], [address], 07/17/2024 06:37:06 07/17/19 25 07/17/2024 UA/M W/RFL X CULTU RE, ROUTI NE ketones NEGATI VE negati ve Not Available [facility] ([facility]) [address] [place], [address], 07/17/2024 06:37:06 07/17/19 25 07/17/2024 UA/M W/RFL X CULTU RE, ROUTI NE occult blood NEGATI VE negati ve Not Available [facility] ([facility]) [address] [place], [address], 07/17/2024 06:37:06 07/17/19 25 07/17/2024 UA/M W/RFL X CULTU RE, ROUTI NE bilirubin NEGATI VE negati ve Not Available [facility] ([facility]) [address] [place], [address], 07/17/2024 06:37:06 07/17/19 25 07/17/2024 UA/M W/RFL X CULTU RE, ROUTI NE urobilinogen ,semi-qn 0.2 mg/dL 0.2-1. 0 Not Available [facility] ([facility]) [address] [place], [address], 07/17/2024 06:37:06 07/17/19 25 07/17/2024 UA/M W/RFL X CULTU RE, ROUTI NE nitrite, urine NEGATI VE negati ve Not Available [facility] ([facility]) [address] [facility], [place], [address], 07/17/2024 06:37:06 07/17/19 25 07/17/2024 UA/M W/RFL X CULTU RE, ROUTI NE microscopic examination COMMEN T Micro scopi c follo ws if indic ated. Not Available [facility] ([facility]) [address] [facility], [place], [address], 07/17/2024 06:37:06 07/17/19 25 07/17/2024 UA/M W/RFL X CULTU RE, ROUTI NE microscopic examination SEE BELOW: Micro scopi c was indic ated and was perfo rmed. Not Available [facility] ([facility]) [address] [facility], [place], [address], 07/17/2024 06:37:06 07/17/19 25 07/17/2024 UA/M W/RFL X CULTU RE, ROUTI NE urinalysis reflex COMMEN T This speci men will not refle x to a Urine Cultu re. Not Available [facility] ([facility]) [address] [place], [address], 07/17/2024 06:37:06 01/22/20 25 01/23/2025 NUSWA B VG+, MARY ANN DA 6SP atopobium vaginae HIGH - 2 score abnormal Not Available [facility] ([facility]) [address] [place], [address], 01/24/2025 08:34:05 01/22/2001/23/2025 NUSWA B VG+, MARY ANN DA 6SP bvab 2 HIGH - 2 score abnormal Not Available [facility] ([facility]) [address] [place], [address], 01/24/2025 08:34:05 01/22/2001/23/2025 NUSWA B VG+, MARY ANN DA 6SP megasphaera [...] d be evalu ated to estab ly a diagn osis. Total score 3-6: Indic ates the prese nce of BV. Not Available [facility] ([facility]) [address] [place], [address], 01/24/2025 08:34:05 01/22/2001/23/2025 NUA B VG+, MARY ANN DA 6SP bill albicans, BONIFACIO NEGATI VE negati ve Not Available [facility] ([facility]) [address] [place], [address], 01/24/2025 08:34:05 01/22/2001/23/2025 NUA B VG+, MARY ANN DA 6SP bill glabrata, BONIFACIO NEGATI VE negati ve Not Available [facility] ([facility]) [address] [place], [address], 01/24/2025 08:34:05 01/22/2001/24/2025 NUA B VG+, MARY ANN DA 6SP C parapsilosis /tropicalis NEGATI VE negati ve This assay does not diffe renti ate C. tropi calis and C. parap timi is. Not Available [facility] ([facility]) [address] [place], [address], 01/24/2025 08:34:05 01/22/2001/24/2025 NUA B VG+, MARY ANN DA 6SP bill lusitaniae, BONIFACIO NEGATI VE negati ve Not Available [facility] ([facility]) [address] [facility] [place], [address], 01/24/2025 08:34:05 01/22/2001/24/2025 NUSWA B VG+, MARY ANN DA 6SP bill krusei, BONIFACIO NEGATI VE negati ve Not Available [facility] ([facility]) [address] [facility], [place], [address], 01/24/2025 08:34:05 01/22/2001/24/2025 NUSWA B VG+, MARY ANN DA 6SP trich vag by BONIFACIO NEGATI VE negati ve Not Available [facility] ([facility]) [address] [facility], [place], [address], 01/24/2025 08:34:05 01/22/2001/24/2025 NUA B VG+, MARY ANN DA 6SP chlamydia trachomatis, BONIFACIO NEGATI VE negati ve Not Available [facility] ([facility]) [address] [facility], [place], [address], 01/24/2025 08:34:05 01/22/2001/24/2025 NUA B VG+, MARY ANN DA 6SP neisseria gonorrhoeae, BONIFACIO NEGATI VE negati ve Not Available [facility] ([facility]) [address] [facility], [place], [address], 01/24/2025 08:34:05 03/04/20 25 03/05/2025 NUA B VG+, MARY ANN DA 6SP atopobium vaginae MODERA TE - 1 score Not Available [facility] ([facility]) [address] [place], [address], 03/06/2025 07:22:41 03/04/20 25 03/05/2025 NUSWA B VG+, MARY ANN DA 6SP bvab 2 MODERA TE - 1 score Not Available [facility] ([facility]) [address] [place], [address], 03/06/2025 07:22:41 03/04/20 25 03/05/2025 NUSWA B VG+, MARY ANN DA 6SP megasphaera [...] d be evalu ated to estab ly a diagn osis. Total score 3-6: Indic ates the prese nce of BV. Not Available [facility] ([facility]) [address] [facility], [place], [address], 03/06/2025 07:22:41 03/04/20 25 03/05/2025 NUA B VG+, MARY ANN DA 6SP bill albicans, BONIFACIO NEGATI VE negati ve Not Available [facility] ([facility]) [address] [place], [address], 03/06/2025 07:22:41 03/04/20 25 03/05/2025 NUA B VG+, MARY ANN DA 6SP bill glabrata, BONIFACIO NEGATI VE negati ve Not Available [facility] ([facility]) [address] [place], [address], 03/06/2025 07:22:41 03/04/2003/06/2025 NUA B VG+, MARY ANN DA 6SP C parapsilosis /tropicalis NEGATI VE negati ve This assay does not diffe renti ate C. tropi calis and C. parap timi is. Not Available [facility] ([facility]) [address] [place], [address], 03/06/2025 07:22:41 03/04/20 25 03/06/2025 NUA B VG+, MARY ANN DA 6SP bill lusitaniae, BONIFACIO NEGATI VE negati ve Not Available [facility] ([facility]) [address] [facility], [place], [address], 03/06/2025 07:22:41 03/04/2003/06/2025 NUSWA B VG+, MARY ANN DA 6SP bill krusei, BONIFACIO NEGATI VE negati ve Not Available [facility] ([facility]) [address] [facility], [place], [address], 03/06/2025 07:22:41 03/04/2003/06/2025 NUA B VG+, MARY ANN DA 6SP trich vag by BONIFACIO NEGATI VE negati ve Not Available [facility] ([facility]) [address] [facility], [place], [address], 03/06/2025 07:22:41 03/04/2003/06/2025 NUA B VG+, MARY ANN DA 6SP chlamydia trachomatis, BONIFACIO NEGATI VE negati ve Not Available [facility] ([facility]) [address] [facility], [place], [address], 03/06/2025 07:22:41 03/04/2003/06/2025 NUA B VG+, MARY ANN DA 6SP neisseria gonorrhoeae, BONIFACIO NEGATI VE negati ve Not Available [facility] ([facility]) [address] [facility], [place], [address], 03/06/2025 07:22:41 03/19/20 25 03/19/2025 CBC, PLATE LET, NO DIFFE RENTI AL WBC 5.7 x10e9 /L 4.0-10 .7 Not Available [facility] (Surgery Scheduling) [address], [place], [address], 03/19/2025 17:01:17 03/19/20 25 03/19/2025 CBC, PLATE LET, NO DIFFE RENTI AL RBC 3.15 x10e1 2/L 3.90-5 .20 below low normal Not Available [facility] (Surgery Scheduling) [address], [place], [address], 03/19/2025 17:01:17 03/19/20 25 03/19/2025 CBC, PLATE LET, NO DIFFE RENTI AL hemoglobin 8.2 g/dL 11.9-1 5.8 below low normal Not Available [facility] (Surgery Scheduling) [address], [place], [address], 03/19/2025 17:01:17 03/19/2003/19/2025 CBC, PLATE LET, NO DIFFE RENTI AL hematocrit 26.3 % 34.8-4 6.1 below low normal Not Available [facility] (Surgery Scheduling) [address], [place], [address], 03/19/2025 17:01:17 03/19/20 25 03/19/2025 CBC, PLATE LET, NO DIFFE RENTI AL MCV 83.5 fL 80.0-9 8.0 Not Available [facility] (Surgery Scheduling) [address], [place], [address], 03/19/2025 17:01:17 03/19/20 25 03/19/2025 CBC, PLATE LET, NO DIFFE RENTI AL MCH 26.0 pg 26.7-3 3.6 below low normal Not Available [facility] (Surgery Scheduling) [address], [place], [address], 03/19/2025 17:01:17 03/19/20 25 03/19/2025 CBC, PLATE LET, NO DIFFE RENTI AL MCHC 31.2 g/dL 31.7-3 6.3 below low normal Not Available [facility] (Surgery Scheduling) [address], [place], [address], 03/19/2025 17:01:17 03/19/20 25 03/19/2025 CBC, PLATE LET, NO DIFFE RENTI AL RDW 17.1 % 11.3-1 4.8 above high normal Not Available [facility] (Surgery Scheduling) [address] , [place], [address], 03/19/2025 17:01:17 03/19/20 25 03/19/2025 CBC, PLATE LET, NO DIFFE RENTI AL platelets 429 x10e9 /L 150-42 0 above high normal Not Available [facility] (Surgery Scheduling) [address] , [place], [address], 03/19/2025 17:01:17 03/19/20 25 03/20/2025 TSH RFX ON ABNOR MAL TO FREE T4 TSH 0.931 uIU/m L 0.450- 4.500 Not Available [facility] ([facility]) [address] [facility], [place], [address], 03/20/2025 11:14:05 03/19/20 25 03/20/2025 FSH FSH 6.3 mIU/m L Adult Femal e Range Folli cular phase 3.5 - 12.5 Ovula tion phase 4.7 - 21.5 Lutea l phase 1.7 - 7.7 Postm enopa usal 25.8 - 134.8 Not Available [facility] ([facility]) [address] [facility], [place], [address], 03/20/2025 11:14:05 03/19/20 25 03/20/2025 HCG,B ETA SUBUN IT, QNT HCG,beta subunit,qnt, serum <1 mIU/m L Femal e (Non- pregn ant) 0 - 5 (Post menop ausal ) 0 - 8 Femal e (Preg nant) Weeks of Gesta tion 3 6 - 71 4 10 - 750 5 393 - 3126 6 017 - 45089 7 1732 -4113 63 8 14049 -6898 71 9 41449 -5815 10 10 40938 -1258 77 12 47787 -3759 12 14 99147 - 07331 15 68412 - 25331 16 9360 - 41474 17 4087 - 51568 18 0893 - 79476 Jac ECLIA metho dolog y Not Available [facility] ([facility]) [address] [facility], [place], [address], 03/20/2025 11:14:06 03/19/20 25 03/20/2025 ESTRA DIOL estradiol 115.0 pg/mL Adult Femal e Range Folli cular phase 12.5 - 166.0 Ovula tion phase 85.8 - 498.0 Lutea l phase 43.8 - 211.0 Postm enopa usal <6.0 - 54.7 Pregn bhanu 1st trime ster 215.0 - >4300 .0 Jac ECLIA metho dolog y Not Available [facility] ([facility]) [address] [facility], [place], [address], 03/20/2025 11:14:06 03/19/20 25 03/19/2025 CBC w/ [...] Abnorm al Not Available Not Available 16:33:52 07/26/19 25 07/16/2024 MRI, breas t, bilat eral, w/wo contr ast No observ ation record ed. [facility] (Radiology) [address] [place], [address], 08/24/2024 14:05:52 09/25/19 25 09/21/2024 MAMMO , scree manoj, digit al, bilat eral No observ ation record ed. [facility] (Radiology) [address] [place], [address], 09/29/2024 12:42:10 Result Notes None recorded. Procedures Surgical History Date Name Laterality Status Provider Name and Address Organization Details Recorded Time Gastric Bypass completed Crystal Szymanski MA [facility] 01/17/2023 15:45:13 cholecystectomy completed Crystal aguirre MA [facility] 01/17/2023 15:45:25 Imaging Results None recorded. Procedure [...] height Body mass index (BMI) Body weight Oxygen saturation Heart rate Body temperature Systolic And Diastolic Provider Name and Address Organization Details Last Updated DateTime 165.1 cm 37.8 kg/m2 160177. 47 g 99 % 78 /min 98.1 [degF] 116/78 mm[Hg] Simran Donis MD Attn: Michele ervin,[address] [place], [address], [facility] 10:52:24 Date Recorded Body height Body mass index (BMI) Body weight Respiratory rate Oxygen saturation Heart rate Body temperature Systolic And Diastolic Provider Name and Address Organization Details Last Updated DateTime 165.1 cm 31.5 kg/m2 10673.9 6 g 16 /min 100 % 90 /min 98.1 [degF] 116/70 mm[Hg] Crystal Szymanski MA [facility] 14:11:29 Social History Question Answer Notes LastModified by Organizat ion Details LastModified Time Tobacco Smoking Status Never Smoker Crystal Szymanski MA null, [place] - [facility] 01/17/2023 15:44:41 What Is Your Level Of [...] Atrial Fibrillation N High Blood Pressure N Depression N COPD N Blood Clots N Anxiety Disorder N Muscle, Joint, or Bone Problems N Acid Reflux (GERD) N Cancer N Stroke N ADHD N High Cholesterol N Liver Disease N Schizophrenia N Headaches N Kidney or Bladder Problems N Thyroid Problems N GI Problems N Eating Disorder N Skin Problems N Anemia N Heart Attack (MD) N Diabetes N Seizures/Epilepsy N Asthma N Allergies N Substance Abuse N Hepatitis N Osteoporosis N Heart Failure N Gynecological [...] Time OPV, trivalent 8 completed Not Available [facility] 03/19/2025 14:03:59 DTP 8 completed Not Available [facility] 03/19/2025 14:03:59 DTP 8 completed Not Available [facility] 03/19/2025 14:03:59 DTP 8 completed Not Available [facility] 03/19/2025 14:03:59 OPV, trivalent 8 completed Not Available [facility] 03/19/2025 14:03:59 MMR 0 completed Not Available [facility] 03/19/2025 14:03:59 OPV, trivalent 0 completed Not Available [facility] 03/19/2025 14:03:59 DTP 0 completed Not Available [facility] 03/19/2025 14:03:59 Td (adult), 2 Lf tetanus toxoid, preservative free, adsorbed 1 completed Not Available [facility] 03/19/2025 14:03:59 MMR 5 completed Not Available [facility] 03/19/2025 14:03:59 OPV, trivalent 5 completed Not Available [facility] 03/19/2025 14:03:59 Hep B, adult 1 completed Not Available [facility] 03/19/2025 14:03:59 Hep B, adult 2 completed Not Available [facility] 03/19/2025 14:03:59 Hep B, adult 3 completed Not Available [facility] 03/19/2025 14:03:59 Influenza, split virus, trivalent, preservative 3 completed Not Available [facility] 03/19/2025 14:03:59 Past Encounters Encounter ID Performer Location Encounter Start Date Encounter Closed Date Diagnosis/Indication Diagnosis SNOMED-CT Code Diagnosis ICD10 Code Diagnosis IMO Codes Diagnosis Note [id number] MD [facility] (Adult Med) [address] [place] [phone] 01/17/2023 15:17:44 01/26/2023 10:55:59 Screening for malignant neoplasm of cervix 357916747 Z12.4 Screening for malignant neoplasm of breast 690003931 Z12.39 Will fax me past breast imaging so I can decide the best imaging to do at this time. Follow up appointmen t in one to two weeks. Platelet c ount outside reference range 061548509 R79.89 History of abnormal platelets. Repeat CBC. Mass of left breast 1224 [id number] N63.20 Patient emailed me previous MRI with and without contrast that was done along with ultrasound . Will proceed with MRI with and without contrast and diagnostic mammogram due to fullness in left outer breast, strong family history of breast cancer at a young age, and the incomplete imaging done a year ago. Patient has follow up appointmen t to discuss results. [id number] MD [facility] (Adult Med) [address] [place] [phone] 0 12/19/2023 10:46:10 12/20/2023 11:59:21 Body mass index 30+ - obesity [id number] Z68.33 Abdominal pain [id number] R10.9 Only had water this morning. Will get blood work to rule out systemic issues. GI referral for further work up and colonoscop y. Mass of left breast 1224 [id number] N63.20 Will get results of MRI. Chronic constipation 236 [id number] K59.09 Encouraged regular activity. Recommende d six to eight glasses of water a day. Recommende d Metamucil. Start with one dose every third day and increase as tolerated. Follow up in three months. [id number] MD [facility] (Adult Med) [address] [place] [address] [phone] 0 04/02/2024 12:59:27 04/03/2024 10:07:19 Body mass index 30+ - obesity [id number] Z68.33 Patient has been working on lifestyle changes for last two months and weight has not changed. Advised her to concentrat e exercise on aerobic exercises and focus on goal of six days a week thirty minutes at a time. We also talked about frequent small meals daily of healthy food. She is interested in medication for weight loss. Discussed GLP-1 risks and side effects, including pancreatit is and thyroid cancer. Patient has no personal or family history of thyroid cancer or pancreatit is. Will check a fasting glucose and Hemoglobin A1C to see if she has any issues with her glucose. Then will start GLP-1. Patient will come in for fasting labs. Screening for malignant neoplasm of breast [id number] Z12.39 Will fax me past breast imaging so I can decide the best imaging to do at this time. Follow up appointmen t in one to two weeks. [place] [facility] [place] malignant neoplasm of breast [id number] 05880 Z91.89 Hyperlipid emia screening [id number] Z13.220 Will return for fasting labs. Has not had cholestero l checked. [id number] MD [facility] (Adult Med) [address] [place] [address] [phone] 0 07/09/2024 10:37:33 07/10/2024 11:40:36 Body mass index 30+ - obesity [id number] Z68.33 Has a coupon for coverage of tirzepatid e. Reviewed side effects and risks such as pancreatit is and medullary thyroid cancer. Patient has not personal history of these and there is no family history of these medical problems. She would like to try this medication . I stressed the importance of lifestyle changes along with the medication . She will follow up in three months. She will reach out if she has problems with the medication , such as abdominal pain or vomiting. Acute urin shon tract infection [id number] N39.0 Was recently treated at ER for UTI. Feels like they are related to intercours e. She is taking boric acid which I told her is helpful for BV but not to prevent UTIs. Advised her to urinate before and after intercours e. If continues to get infections that she feels are related to sexual activity we can discuss antibiotic for prevention . Screening for malignant neoplasm of breast [id number] Z12.39 Getting MRI in the next week. Macromastia [id number] N6 2 Patient would like a breast reduction and has a [facility] [place] [facility] provider. [id number] MD [facility] (Adult Med) [address] [place] [address] [phone] 01/22/2025 16:54:59 01/25/2025 03:47:23 [id number] MD [facility] (Adult Med) [address] [place] [address] [phone] 03/04/2025 14:19:58 03/07/2025 03:47:44 [id number] Simran Donis MD [facility] (Adult Med) [address] [place] [address] 03/19/2025 14:00:26 03/20/2025 09:29:39 Menorrhagia [id number] N92.0 [id number] Heavy vaginal bleeding and passing clots. Will [...] by Organization Details LastModified Time None Recorded Advance Directives Directive None Recorded Payers Insurance Date Sequence Insurance Name Policy Number Policy Doll Covered Member ID Doll Member ID Guarantor Name 03/19/2025 1 BC-CA (PPO) [id number] Sarah Pang [id number] Jennifer Pang 03/19/2025 1 [employer] [id number] Jennifer Pang [id number] Jennifer Pang 03/19/2025 [facility] Sarah Pang [facility] Jennifer Pang 12/19/2023 1 *SELF PAY* Ra valerio Pang 03/19/2025 1 [employer] [id number] Sarah Pang [id number] Jennifer Pang Notes Date Note Type Note Provider Name and Address Organization Details Recorded Time 04/02/2024 text/html ROS as noted in the HPI follow up, insurance changed, would like to talk about weight loss, weight today 221, had a gastric sleeve Mar 2019, helped for a time but eventually started eating worse and gained weight back, back in the gym last two months, trying to eat healthier, goes to gym Tue through Tuesday, spends an hour or ninety minutes, does cardio and weight lifting, does twenty minutes cardio, trying to drink more water, more protein and vegies, less sweets, 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, snacks a lot, comes home and starving, has started meal prepping so eating breakfast and lunch, does some protein smoothies, has scrambled eggs and turkey dickerson and fruit, has mastered eating for last four weeks, feels like she is still gaining weight, also time for breast MRI, no stomach pains, has not had stomach pain since end of December, no nausea or vomiting, had colonoscopy, increased urinary frequency, increased thirst for a couple of months, father diabetes, grandparents diabetes, brother diabetes, no family history of pancreatitis or thyroid cancer Simran Donis MD Attn: [address] [place], [address], [facility] 04/02/2024 15:51:59 07/09/2024 text/html follow up, before came here was considering breast reduction, was going to see Dr. Ermias Talbot at in [facility], slacked on exercise, diet is so so, picked up snacking again with the extra job, working fifty six hours a week, [employer], Simran Donis MD Attn: [address] [place], [address], [facility] - [facility] 07/09/2024 11:26:22 01/22/2025 text/html ROS as noted in the HPI having vaginal odor Simran Donis MD Attn: [address] [place], [address], [place] - [facility] 01/22/2025 18:12:11 03/04/2025 text/html pt came in for [facility], specimen collected.-jarocho Szymanski MA [facility], [place] - [facility] 03/05/2025 11:52:34 03/19/2025 text/html ROS as noted in the [...] of blood clots, Simran Donis MD Attn: [address] [place], [address], [place] [facility] 03/19/2025 14:34:41 OBGyn Episode No OBEpisode recorded.
--- OUTSIDE RECORDS SUMMARY | 2025-03-24 06:07 | XMS_ITS | Clinical Summary ---
Author Organization [facility] Address [address] [place] [address] Phone Care Team Providers Care Support Manager Name Role Phone Simran Donis MD Primary Care Provider [phone] Allergies No known active allergies Medications No known medications Active Problems No known active problems Immunizations Immunization Administration Dates Next Due Influenza Vaccine greater than 3 yrs 12/10/2012 Social History Tobacco Use Types Packs/Day Years Used Date Smoking Tobacco: Never Smokeless Tobacco: Never Alcohol Use Standard Drinks/Week Comments Not Asked 0 (1 standard drink = 0.6 oz pur e alcohol) Comments Unknown Sex and Gender Information Value Date Recorded Sex Assigned at Not on file Legal Sex Female 3:11 AM SEDIMENTATIONIST Gender Identity Not on file Sexual Orientation Not on file Last Filed Vital Signs Vital Sign Reading Time Taken Comments Blood Pressure 124/77 05/23/2013 4:51 PM SEDIMENTATIONIST Pulse 98 05/23/2013 4:51 PM SEDIMENTATIONIST Temperature 36.5 C (97.7 F) 05/23/2013 4:51 PM SEDIMENTATIONIST Respiratory Rate 18 05/23/2013 4:51 PM SEDIMENTATIONIST Oxygen Saturation 98% 05/23/2013 4:51 PM SEDIMENTATIONIST Inhaled Oxygen Concentration - - Weight 95.3 kg (210 lb) 05/23/2013 4:51 PM SEDIMENTATIONIST s bertin Height 167.6 cm (5' 6) 05/23/2013 4:51 PM SEDIMENTATIONIST Body Mass Index 33.89 05/23/2013 4:51 PM SEDIMENTATIONIST Plan of Treatment Health Maintenance Due Date Last Done Comments TdaP Immunization 1977 Pap Smear 1998 Cervical Cancer Screening (CCS) 09/20/2007 HPV/Cotest 09/20/2007 Cologuard 2022 Colonoscopy 2022 Colorectal Cancer Screening 2022 Immunochemical Fecal Occult Blood 2022 Influenza Immunization (#1) 11/26/202412/27, 01/05/2020, 01/17/2019, Additional history exists SARS-COV-2 Immunization (2024- season) 2024 Mammogram 09/21/2025 09/21/2024, 06/27, 04/27/2023, Additional history exists Respiratory Syncytial Virus (RSV) Immunization (Adult) (1 - 1-dose 75+ series) 2052 DTaP/Tdap/Td Immunization Discontinued 2003, 08/16/1990, 11/16/1979, Additional history exists Hepatitis B Immunization Completed 021, 07/27/2002, 02/27/2002, Additional history exists Hepatitis C Virus (HCV) Screening Completed 07/28/2021 Discussion re Starting/Frequency of Mammograms Completed 09/21/2024, 07/16/2024, 04/27/2023, Additional history exists Human Papillomavirus (HPV) Immunization (No Doses Required) Completed Meningococcal Immunization (ACWY) Aged Out No longer eligible based on patient's age to complete this topic Pneumococcal Immunization Combined Aged Out No longer eligible based on patient's age to complete this topic Rotavirus Immunization Aged Out No lo nger eligible based on patient's age to complete this topic Procedures Procedure Name Priority Date/Time Associated Diagnosis Comments [facility] SCREENING BILATERAL DIGITAL W CAD W EMMETT Routine 09/21/2024 2:22 PM CDT Encounter for screening mammogram for malignant neoplasm of breast from Last 3 Months or Most Recently Relevant to Health Maintenance Results * [facility] SCREENING BILATERAL DIGITAL W CAD W EMMETT (09/21/2024 2:22 PM CDT) Anatomical Region Laterality Modality breast Bilateral Mammography 09/21/2024 2:19 PM CDT Narrative 09/24/2024 2:20 PM CDT - [facility] SCREENING BILATERAL DIGITAL W CAD W EMMETT BILATERAL DIGITAL SCREENING MAMMOGRAM 3D/2D WITH CAD WITH MEDIOLATERAL OBLIQUE CRANIOCAUDAL: 09/21/2024 The study was acquired using digital technology and interpreted from soft copy. Current study was also evaluated with ICAD version 7.2. 2D digital mammographic views, as well as 3D digital tomosynthesis were performed in the CC and MLO projections. CLINICAL: Routine screening. Patient has no complaints. No personal history of cancer. Mother and sister with premenopausal breast cancer. COMPARISONS: Comparison is made to exams dated: 02/21/2023, 02/21/2023 [facility], and 08/25/2021 [facility]. Breast MRI 07/16/24 BREAST TISSUE:The breasts are heterogeneously dense, which may obscure small masses. FINDINGS: There are stable benign appearing calcifications in both breasts. No significant masses, calcifications, or other findings are seen in either breast. IMPRESSION: BENIGN There is no mammographic evidence of malignancy. A 1 year screening mammogram is recommended. A letter will be sent to the patient with these results. The patient will be entered into a reminder system with a target due date of 1 year for her next screening exam. Electronically signed by: Shy Delaney M.D. ab/:09/21/2024 19:02:08 Toddler Teacher(s): RT Petty(R)(M), [facility] letter sent: Normal Exam Reading location: [facility] Mammogram BI-RADS: Category 2: Benign Procedure Note Shy Delaney MD - 09/24/2024 - [facility] SCREENING BILATERAL DIGITAL W CAD W EMMETT BILATERAL DIGITAL SCREENING MAMMOGRAM 3D/2D WITH CAD WITH MEDIOLATERAL OBLIQUE CRANIOCAUDAL: 09/21/2024 The study was acquired using digital technology and interpreted from soft copy. Current study was also evaluated with ICAD version 7.2. 2D digital mammographic views, as well as 3D digital tomosynthesis were performed in the CC and MLO projections. CLINICAL: Routine screening. Patient has no complaints. No personal history of cancer. Mother and sister with premenopausal breast cancer. COMPARISONS: Comparison is made to exams dated: 02/21/2023, 02/21/2023 [facility], and 08/25/2021 [facility]. Breast MRI 07/16/24 BREAST TISSUE:The breasts are heterogeneously dense, which may obscure small masses. FINDINGS: There are stable benign appearing calcifications in both breasts. No significant masses, calcifications, or other findings are seen in either breast. IMPRESSION: BENIGN There is no mammographic evidence of malignancy. A 1 year screening mammogram is recommended. A letter will be sent to the patient with these results. The patient will be entered into a reminder system with a target due date of 1 year for her next screening exam. Electronically signed by: Shy Delaney M.D. ab/:09/21/2024 19:02:08 Toddler Teacher(s): RT Petty(R)(M), [facility] letter sent: Normal Exam Reading location: [facility] Mammogram BI-RADS: Category 2: Benign Simran Donis MD IMG MAMMO ORDERABLES Final Re sult from Last 3 Months or Most Recently Relevant to Health Maintenance [place] [address] [place] [address] BREAST CERVICAL CANCER Care Teams Support Manager Relationship Specialty Start Date End Date Simran Doins MD [address] [place] [address] PCP - General Family Medicine 02/21/23
--- OUTSIDE RECORDS SUMMARY | 2025-03-24 06:07 | XMS_ITS | Continuity of Care Document ---
Author Organization [facility] (Adult Med) Address [address] [place] [address] Assessment Encounter Date Assessment Date Assessment LastModified by Organization Details LastModified Time 03/04/2025 03/04/2025 Patient came in for a nuswab for vaginal odor dmilesma Not available 03/05/2025 11:52:11 Plan of Treatment Reminders Order Date Submit Date Provider Last Modified By Organization Details Last Modified Time Details Appointments ANY 30 026 08:30AM Simran Donis MD Not available Not available Not available Lab None record ed. Referral None record ed. Procedures None record ed. Surgeries None record ed. Imaging None record ed. Medication Orders None record ed. Patient TargetsNo targets recorded. Patient InstructionsNo instructions recorded. Reason for Referral None Reported. Results Created Date Observation Date Name Description Value Unit Range Abnormal Flag Note LastModifiedBy Organization Detail LastModifiedTime 03/04/2003/05/2025 NUSWA B VG+, MARY ANN DA 6SP atopobium vaginae MODERA TE - 1 score Not Available [facility] ([facility]) [address] [facility], [place], [address], 03/06/2025 07:22:41 03/04/2003/05/2025 NUSWA B VG+, MARY ANN DA 6SP bvab 2 MODERA TE - 1 score Not Available [facility] ([facility]) [address] [place], [address], 03/06/2025 07:22:41 03/04/20 25 03/05/2025 NUSWA B [...] prese nce of BV. Not Available [facility] ([facility]) [address] [place], [address], 03/06/2025 07:22:41 03/04/20 25 03/05/2025 NUA B VG+, MARY ANN DA 6SP bill albicans, BONIFACIO NEGATI VE negati ve Not Available [facility] ([facility]) [address] [place], [address], 03/06/2025 07:22:41 03/04/20 25 03/05/2025 NUA B VG+, MARY ANN DA 6SP bill glabrata, BONIFACIO NEGATI VE negati ve Not Available [facility] ([facility]) [address] [place], [address], 03/06/2025 07:22:41 03/04/20 25 03/06/2025 NUA B VG+, MARY ANN DA 6SP C parapsilosis /tropicalis NEGATI VE negati ve This assay does not diffe renti ate C. tropi calis and C. parap timi is. Not Available [facility] ([facility]) [address] [place], [address], 03/06/2025 07:22:41 03/04/20 25 03/06/2025 NUA B VG+, MARY ANN DA 6SP bill lusitaniae, BONIFACIO NEGATI VE negati ve Not Available [facility] ([facility]) [address] [facility], [place], [address], 03/06/2025 07:22:41 03/04/2003/06/2025 NUSWA B VG+, MARY ANN DA 6SP bill krusei, BONIFACIO NEGATI VE negati ve Not Available [facility] ([facility]) [address] [facility], [place], [address], 03/06/2025 07:22:41 03/04/2003/06/2025 NUA B VG+, MARY ANN DA 6SP trich vag by BONIFACIO NEGATI VE negati ve Not Available [facility] ([facility]) [address] [facility], [place], [address], 03/06/2025 07:22:41 03/04/2003/06/2025 NUSWA B VG+, MARY ANN DA 6SP chlamydia trachomatis, BONIFACIO NEGATI VE negati ve Not Available [facility] ([facility]) [address] [facility], [place], [address], 03/06/2025 07:22:41 03/04/2003/06/2025 NUA B VG+, MARY ANN DA 6SP neisseria gonorrhoeae, BONIFACIO NEGATI VE negati ve Not Available [facility] ([facility]) [address] [facility], [place], [address], 03/06/2025 07:22:41 Result Notes None recorded. Procedures Surgical History Date Name Laterality Status Provider Name and Address Organization Details Recorded Time Gastric Bypass completed Crystal Szymanski MA [facility] 01/17/2023 15:45:13 cholecystectomy completed Crystal aguirre MA [facility] 01/17/2023 15:45:25 Imaging Results None recorded. Procedure [...] Available Not Available No t Available Vitals None Recorded Social History Question Answer Notes LastModified by Organizat ion Details LastModified Time Tobacco Smoking Status Never Smoker Crystal Szymanski MA null, [place] - [facility] 01/17/2023 15:44:41 What Is Your Level Of [...] Liver Disease N Schizophrenia N Headaches N Thyroid Problems N Kidney or Bladder Problems N GI Problems N Eating Disorder N Skin Problems N Anemia N Heart Attack ([place]) N Diabetes N Seizures/Epilepsy N Asthma N Allergies N Substance Abuse N Hepatitis N Heart Failure N Osteoporosis N Gynecological History Statement/Question Response Flow Heavy [...] Time OPV, trivalent 8 completed Not Available [facility] 03/19/2025 14:03:59 DTP 8 completed Not Available [facility] 03/19/2025 14:03:59 DTP 8 completed Not Available [facility] 03/19/2025 14:03:59 DTP 8 completed Not Available [facility] 03/19/2025 14:03:59 OPV, trivalent 8 completed Not Available [facility] 03/19/2025 14:03:59 MMR 0 completed Not Available [facility] 03/19/2025 14:03:59 OPV, trivalent 0 completed Not Available [facility] 03/19/2025 14:03:59 DTP 0 completed Not Available [facility] 03/19/2025 14:03:59 Td (adult), 2 Lf tetanus toxoid, preservative free, adsorbed 1 completed Not Available [facility] 03/19/2025 14:03:59 MMR 5 completed Not Available [facility] 03/19/2025 14:03:59 OPV, trivalent 5 completed Not Available [facility] 03/19/2025 14:03:59 Hep B, adult 1 completed Not Available [facility] 03/19/2025 14:03:59 Hep B, adult 2 completed Not Available [facility] 03/19/2025 14:03:59 Hep B, adult 3 completed Not Available [facility] 03/19/2025 14:03:59 Influenza, split virus, trivalent, preservative 3 completed Not Available [facility] 03/19/2025 14:03:59 Past Encounters Encounter ID Performer Location Encounter Start Date Encounter Closed Date Diagnosis/Indication Diagnosis SNOMED-CT Code Diagnosis ICD10 Code Diagnosis IMO Codes Diagnosis Note [id number] MD [facility] (Adult Med) [address] [place] [address] 0 03/04/2025 14:19:58 03/07/2025 03:47:44 Health Concerns Section Related Observation LastModified by Organization Detai ls LastModified Time None Recorded Concern Status LastModified by Organization Details LastModified Time None Recorded Payers Encounter Date Sequence Insurance Name Policy Number Policy Doll Covered Member ID Doll Member ID Guarantor Name 03/04/2025 1 [employer] [id number] Jennifer Carmella Pang [id number] Jennifer Pang Notes Date Note Type Note Provider Name and Address Organization Details Recorded Time 03/04/2025 text/html pt came in for nuswab, specimen collected.-jarocho Szymanski MA null, [place] - [facility] 03/05/2025 11:52:34 OBGyn Episode No OBEpisode recorded.
--- OUTSIDE RECORDS SUMMARY | 2025-03-24 06:07 | XMS_ITS | Encounter Summary ---
Author Organization [facility] Address [address] [place] [address] Phone Care Team Providers Care Appliance Installer Name Role Phone Simran Donis MD Primary Care Provider [phone] Encounter Details Date Type Department Care Team (Late st Contact Info) Description 01/28/2023 Transcribe Orders [facility] Central Scheduling [address] [place] [address] [place] [address] [place] [address] Social History Tobacco Use Types Packs/Day Years Used Date Smoking Tobacco: Never Smokeless Tobacco: Never Alcohol Use Standard Drinks/Week Comments Not Asked 0 (1 standard drink = 0.6 oz pur e alcohol) Comments Unknown Sex and Gender Information Value Date Recorded Sex Assigned at Not on file Legal Sex Female 3:11 AM RIPSAWYER Gender Identity Not on file Sexual Orientation Not on file documented as of this encounter Plan of Treatment Not on file documented as of this encounter Visit Diagnoses Not on filedocumented in this encounter Care Teams Appliance Installer Relationship Specialty Start Date End Date Simran Donis MD [address] [place] [address] PCP - General Family Medicine 02/21/23 documented as of this encounter
--- OUTSIDE RECORDS SUMMARY | 2025-03-24 06:07 | XMS_ITS | Clinical Summary ---
Author Organization [facility] Address [address] [facility] [place] [address] Care Team Providers Care Green House Manager Name Role Phone Unavailable Primary Care Provider Unavailabl e Social History Tobacco Use Types Packs/Day Years Used Date Smoking Tobacco: Never Assessed Comments Unknown Sex and Gender Information Value Date Recorded Sex Assigned at Not on file Legal Sex Female 9:47 AM CDT Gender Identity Not on file Sexual Orientation Not on file Plan of Treatment Health Maintenance Due Date Last Done Comments DTAP/TDAP/TD VACCINES (1 - Tdap) 1996 HEPATITIS B VACCINES (1 of 3 - 19+ 3-dose series) 08/27 HPV/Cotest (21-29) 1998 CERVICAL CANCER SCREENING 09/20/2007 HPV/Cotest (30-65) 09/20/2007 PAP SMEAR 09/20/2007 BREAST CANCER SCREENING 2017 COLORECTAL SCREENING 2022 Colorectal Cancer Screening 2022 FIT-DNA Q 3 years 2022 FIT/FOBT Q 1 year 2022 Flex Sig/CT Colonography Q 5 years 2022 INFLUENZA VACCINE (#1) 2024
--- OUTSIDE RECORDS SUMMARY | 2025-03-24 06:07 | XMS_ITS | Patient Health Record ---
Author Organization [facility] Address [address] [place] [address] Care Team Providers Care Valuation Manager Name Role Phone Poly Horton DO Primary Care Provider Unavail able Minerva Roman Unavailable [phone] Martinez Esquivel MD Unavailable Unavailable Reason For Referral No Information Medications Medication SIG (Take, Route, Frequency, Duration) Notes Start Date End Date Status Medications Reconciled *please review for potential update for e-prescription and drug interaction check* Not-Taking Social History Social History Additional Details Category Social Info Options Details Migrated Social History Migrated Social History Alcohol Assessment, COMMENTS: rarely, ProblemStatus: Active, , Tobacco Assessment, AttributeTitle: Never smoker, ProblemStatus: Active Problems Problem Type SNOMED Code ICD Code Onset Dates Problem Status W/U Status Risk Notes Problem Counseling (882183797) ENCOUNTER FOR EDUCATION (Z71.9) Inactive confirmed Problem Sore throat (452085045) SORE THROAT (J02.9) Inactive confirmed Problem Headache (64752585) HEADACHE, UNSPECIFIED HEADACHE TYPE (R51) Inactive confirmed Problem Blood in stool (619844225) BLOOD IN STOOL (K92.1) Inactive confirmed Problem Generalized abdominal pain (165175119) DIFFUSE ABDOMINAL PAIN (R10.84) Inactive confirmed Problem Malaise and fatigue (082294436) MALAISE AND FATIGUE (R53.81) Inactive confirmed Problem Acute maxillary sinusitis (50072343) ACUTE MAXILLARY SINUSITIS (J01.00) Inactive confirmed Plan Of Treatment No Information Insurance Providers Payer Name Payer Address Payer Phone Subscriber Number Group Number Insured Name Patient Relationship to Insured Coverage Start Date Coverage End Date [employer] [address] [place] [address] [id number] JUDY GIFFORD Self - patient is the insured Medical (General) History Surgical History Surgery Date(Month/Year) Delivery, ProblemStatus: Active , Cholecystectomy, ProblemStatus: Active,
--- OUTSIDE RECORDS SUMMARY | 2025-03-24 06:07 | XMS_ITS | Clinical Summary ---
Author Organization [facility] [employer] Address [address] [place] [address] Care Team Providers Care Thermodynamics Teacher Name Role Phone Simran Donis MD Primary Care Provider [phone] Source Comments [facility] [employer],non-owned Affiliates and Associated Physician Practices is amultiple site organization consisting of ambulatory clinics and hospital sitesin [place] and [place]. This disclosure is being madepursuant to the Care Everywhere program and may not contain all information available regarding this patient. Last updated 17.[facility] [employer] Allergies No known active allergies Medications * Be aware that medications may not be up to date on this document. Alwaysverify current medications with the patient. Probiotic Product (PROBIOTIC DAILY PO) Take by mouth once daily Active acyclovir (ZOVIRAX) 400 MG tablet Take 1 (one) tablet by mouth 3 times daily 21 tablet 11 2 Active pantoprazole EC (PROTONIX) 20 MG tablet Take 1 (one) tablet by mouth once daily 30 tablet 2 Active vitamin D, ergocalciferol, (DRISDOL) 1.25 MG (22654 UT) capsule Take 1 (one) capsule by mouth every 7 days 12 capsule 3 2 Active metroNIDAZOLE vaginal (METROGEL - VAGINAL) 0.75 % vaginal gel Insert 1 applicator into the vagina at bedtime 70 g 5 2 Active Active Problems Problem Noted Date Diagnosed Date Chronic pain syndrome 05/05/2018 Epigastric pain 10/20/2017 Fatigue 10/20/2017 Headache 10/20/2017 Axillary hidradenitis suppurativa 10/20/2017 Leukorrhea 10/20/2017 Other atopic dermatitis 10/17/2017 BRBPR (bright red blood per rectum) 08/31/2017 Breast nodule 08/31/2017 Muscle cramping 08/31/2017 Metabolic syndrome X 05/24/2017 Dental root caries 01/19/2017 Resolved Problems Problem Noted Date Diagnosed Date Resolved Date Acne 05/24/2018 05/07/2020 Carbuncle of other sites 10/20/201712/2017 Encounter for gynecological examination with abnormal finding 10/20/2017 11/04/2017 Encounter for other screenin g for malignant neoplasm of breast 10/20/2017 11/04/2017 Encounter for screening mamm ogram for malignant neoplasm of breast 10/20/2017 11/04/2017 Family history of malignant neoplasm of breast 10/20/2017 11/04/2017 Body mass index (BMI) 40.0-44.9, adult 10/17/2017 05/07/2020 Encntr screen for infections w sexl mode of transmiss 07/13/2017 11/04/2017 Encounter for screening for other infectious and parasitic diseases 07/13/2017 11/04/2017 Body mass index (bmi) 39.0-39.9, adult 05/24/2017 11/04/2017 Encounter for dental examina tion and cleaning with abnormal findings 01/19/2017 11/04/2017 Encounter for dental exam an d cleaning w/o abnormal findings 01/19/2017 11/04/2017 Encounters Date Type Department Care Team Description 03/19/2025 Lab Requisition [facility] [address] [place] [id number] Simran Donis MD Excessive and frequent menstruation with regular cycle from Last 3 Months Immunizations Immunization Administration Dates Next Due INFLUENZA VACCINE, TRIV. (AF LURIA, FLUZONE TRIVALENT; 6MO+) (IIV3) 12/10/2012 DT (AGE 0-7) 11/16/1979, 8,01/13/1978,1977 HEP B VACCINE, ADULT 3 DOSE 11/10/2020 INFLUENZA VACCINE 01/05/2020 INFLUENZA VACCINE, QUADR. (A FLURIA, FLUZONE QUADRIVALENT; 6MO+) (IIV4) 01/17/2019 INFLUENZA VACCINE, QUADR. (F LUZONE; FLULAVAL; FLUARIX; AFLURIA QUADRIVALENT; 6MO+), 0.5 ML (IIV4) 01/16/2021 MMR 05/07/2020 MMR VACCINE 05/07/2019,10/12/1979 POLIO OPV 11/16/1979,02/10/1978,1977 TD (AGE 9-ADULT) 08/22/2003,08/16/1990 VARICELLA 11/10/2020,05/07/2019 Family History Medical History Relation Name Comments Cancer - Other Father Cancer - Other Mother Relation Name Status Comments Father Mother Social History Tobacco Use Types Packs/Day Years Used Date Smoking Tobacco: Never Smokeless Tobacco: Never Alcohol Use Standard Drinks/Week Comments Yes 0 (1 standard drink = 0.6 oz pur e alcohol) occ. PHQ-2 Answer Date Recorded PHQ2 TOTAL SCORE 0 07/28/2021 Comments No Sex and Gender Information Value Date Recorded Sex Assigned at Not on file Legal Sex Female 1:39 PM [facility] Gender Identity Not on file Sexual Orientation Not on file Last Filed Vital Signs Vital Sign Reading Time Taken Comments Blood Pressure 110/68 07/28/2021 3:42 PM CDT Pulse 82 07/28/2021 3:42 PM CDT Temperature 36.7 C (98 F) 07/28/2021 3:42 PM CDT Respiratory Rate 18 07/28/2021 3:42 PM CDT Oxygen Saturation 99% 07/28/2021 3:42 PM CDT Inhaled Oxygen Concentration - - Weight 85 kg (187 lb 6.4 oz) 07/28/2021 3:42 PM CDT Height 165.1 cm (5' 5) 07/28/2021 3:42 PM CDT Body Mass Index 31.18 07/28/2021 3:42 PM CDT Plan of Treatment Health Maintenance Due Date Last Done Comments COLOGUARD (AGES 45-75) - COLON CA SCREENING 1977 COLON MONITORING 1977 COLONOSCOPY - COLON CA SCREENING 1977 CT COLONOGRAPHY - COLON CA SCREENING 1977 Colorectal Cancer Screening 1977 FIT - COLON CA SCREENING 1977 FLEX SIG - COLON CA SCREENING 1977 DTAP/TDAP/TD VACCINES (7 - Td or Tdap) 08/21/2013 08/22/2003, 08/16/1990, 11/16/1979, Additional history exists HEPATITIS B VACCINE (2 of 3 - 19+ 3-dose series) 12/08/2020 11/10/2020 DEPRESSION SCREENING 03/28/2024 07/28/2021 SCREENING FOR DIABETES 07/28/2024 2, 07/28/2021, 06/26/2020, Additional history exists PAP with HPV 11/05/2024 11/06/2019, 04/14/2018 COVID-19 VACCINE ( season) 2024 02/01/2021, 07/31/2020, 07/08/2020 INFLUENZA VACCINE (#1) 2024 1, 01/05/2020, 01/17/2019, Additional history exists MAMMOGRAM 02/21/2025 02/21/2023, 0503/2021, 04/21/2018 LIPID TESTING 07/28/2026 07/28/2021 ZOSTER VACCINE (1 of 2) 09/20/2027 HIV SCREENING Completed 04/14/2018 HEPATITIS C SCREENING Completed 07/28/2021 HIB VACCINE Aged Out No longer eligi ble based on patient's age to complete this topic HPV VACCINE Aged Out No longer eligi ble based on patient's age to complete this topic MENINGOCOCCAL (Group B) VACCINE SHARED DECISION-MAKING Aged Out No longer eligible based on patient's age to complete this topic MENINGOCOCCAL GROUPS A/C/Y/W VACCINE Aged Out No longer eligible based on patient's age to complete this topic PNEUMOCOCCAL VACCINE Aged Out No long er eligible based on patient's age to complete this topic Procedures Procedure Name Priority Date/Time Associated Diagnosis Comments CBC W AUTO DIFFERENTIAL STAT 03/19/2025 2:03 PM [employer]IN [employer]ER Excessive and frequent menstruation with regular cycle MAMMOGRAPHY ORDER Routine 08/25/2021 COMPREHENSIVE METABOLIC PANEL Routine 07/28/2021 4:06 PM CDT Macromastia Chronic bilateral thoracic back pain LIPID PROFILE Routine 07/28/2021 4:06 PM CDT Encounter for lipid screening for cardiovascular disease HEPATITIS C ANTIBODY Routine 07/28/2021 4:06 PM CDT Encounter for hepatitis C screening test for low risk patient HPV PROBE HIGH RISK BY TMA W/RFLX Routine 11/06/2019 4:46 PM CDT Well woman exam Screening for cervical cancer HIV-1 HIV-2 ANTIBODY + HIV P24 AG PANEL Routine 04/14/2018 4:59 PM [employer]IN BARREL FILLER Screen for STD (sexually transmitted disease) from Last 3 Months or Most Recently Relevant to Health Maintenance Results * (ABNORMAL) CBC WITH DIFFERENTIAL (03/19/2025 2:03 PM [employer]ILLER) WBC 5.7 4.0 - 10.7 x10E9/L 03/19/2025 3:55 PM ROSIN BARREL FILLER [facility] RBC Count 3.15(L) 3.90 - 5.20 x10E12/L 03/19/2025 3:55 PM ROSIN BARREL FILLER [facility] Hemoglobin 8.2(L) 11.9 - 15.8 g/dL 03/19/2025 3:55 PM ROSIN BARREL FILLER [facility] Hematocrit 26.3(L) 34.8 - 46.1 % 03/19/2025 3:55 PM [facility]IN BARREL FILLER [facility] MCV 83.5 80.0 - 98.0 fL 03/19/2025 3:55 PM ROSIN BARREL FILLER [facility] MCH 26.0(L) 26.7 - 33.6 pg 03/19/2025 3:55 PM ROSIN BARREL FILLER [facility] MCHC 31.2(L) 31.7 - 36.3 g/dL 03/19/2025 3:55 PM [employer]IN BARREL FILLER [facility] RDW-CV 17.1(H) 11.3 - 14.8 % 03/19/2025 3:55 PM [facility]IN BARREL FILLER [facility] Platelet Count 429(H) 150 - 420 x10E9/L 03/19/2025 3:55 PM [facility]IN [employer]REL FILL[facility] MPV 9.8 7.8 - 11.4 fL 03/19/2025 3:55 PM [facility]IN [employer]REL FILLER [facility] Neutrophil % 44.0 41.0 - 74.0 % 03/19/2025 3:55 PM ROSIN BARREL FILLER [facility] Lymphocyte % 42.3 17.0 - 47.0 % 03/19/2025 3:55 PM [facility] Monocyte % 9.5 3.0 - 11.0 % 03/19/2025 3:55 PM [facility] Eosinophil % 2.8 0.0 - 7.0 % 03/19/2025 3:55 PM [facility] Basophil % 1.2 0.0 - 1.6 % 03/19/2025 3:55 PM [facility] Immature Granulocytes % 0.2 0.0 - 1.0 % 03/19/2025 3:55 PM [facility] Neutrophil Absolute 2.50 1.60 - 7.50 x10E9/L 03/19/2025 3:55 PM [facility] Lymphocyte Absolute 2.40 1.00 - 4.40 x10E9/L 03/19/2025 3:55 PM [facility] Monocyte Absolute 0.54 0.15 - 1.00 x10E9/L 03/19/2025 3:55 PM [facility] Eosinophil Absolute 0.16 0.00 - 0.60 x10E9/L 03/19/2025 3:55 PM [facility] Basophil Absolute 0.07 0.00 - 0.13 x10E9/L 03/19/2025 3:55 PM [facility] Blood BLOOD SPECIMEN / Unknown 03/19/2025 2:03 PM [facility]IN [employer]REL FILLER 03/19/2025 3:54 PM [employer]IN [employer]REL FILLER us Simran Donis MD LAB - HEMATOLOGY ORDERABLES Fin al Result [facility] [address] [place] [address] * MAMMOGRAPHY ORDER (08/25/2021) Anatomical Region Laterality Modality Mammography us Scanned Document MAMMO ORDERABLES Final Result * (ABNORMAL) COMPREHENSIVE METABOLIC PANEL (07/28/2021 4:06 PM CDT) Sodium 139 136 - 145 mmol/L 07/28/2021 10:42 PM [facility] Potassium 3.9 3.5 - 5.1 mmol/L 07/28/2021 10:42 PM [facility] Chloride 107 98 - 107 mmol/L 07/28/2021 10:42 PM [facility] CO2 24 22 - 29 mmol/L 07/28/2021 10:42 PM [facility] Anion Gap 8(L) 9 - 16 mmol/L 07/28/2021 10:42 PM [facility] Glucose 100 70 - 105 mg/dL 07/28/2021 10:42 PM [facility] BUN 14 9.8 - 20.1 mg/dL 07/28/2021 10:42 PM [facility] Creatinine 0.76 0.57 - 1.11 mg/dL 07/28/2021 10:42 PM [facility] BUN/Creatinine Ratio 18.4(H) 11.2 - 18.1 07/28/2021 10:42 PM [facility] Calcium 9.1 8.4 - 10.2 mg/dL 07/28/2021 10:42 PM [facility] Protein Total 7.5 6.4 - 8.3 gm/dL 07/28/2021 10:42 PM [facility] Albumin 4.2 3.5 - 5.0 gm/dL 07/28/2021 10:42 PM [facility] ALT 13 0 - 55 U/L 07/28/2021 10:42 PM [facility] AST 18 5 - 34 U/L 07/28/2021 10:42 PM [facility] Alkaline Phosphatase 90 40 - 150 U/L 07/28/2021 10:42 PM [facility] Bilirubin Total 0.2 0.2 - 1.2 mg/dL 07/28/2021 10:42 PM [facility] Globulin Total 3.3 1.3 - 4.7 gm/dL 07/28/2021 10:42 PM [facility] Albumin/Globulin Ratio 1.3 1.1 - 2.2 07/28/2021 10:42 PM [facility] Osmolality Calculated 269 260 - 284 mOsm/kg 07/28/2021 10:42 PM [facility] eGFR by MDRD >60 >60 mL/min/1.7 3m2 07/28/2021 10:42 PM CDT [facility] eGFR by MDRD >60 >60 mL/min/1.7 3m2 07/28/2021 10:42 PM CDT [facility] Blood BLOOD SPECIMEN / Unknown Venipuncture / Unknown 07/28/2021 4:06 PM CDT 07/28/2021 4:06 PM CDT Narrative [facility] - 07/28/2021 10:42 PM CDT ADA Comment: The [place] [employer] recommends a fasting glucose concentration of 99 mg/dL as the upper limit of normal. Note:EGFR Reference Ranges have been established for adults between the ages of 18 and 70. STAGES OF CHRONIC KIDNEY DISEASE Stage Description EGFR 1. Kidney damage with normal or increased EGFR > or =90 mL/min/1.73 m 2. Kidney damage with mildly decreased EGFR 60-89 mL/min/1.73 m 3. Moderately decreased EGFR 30-59 mL/min/1.73 m 4. Severely decreased EGFR 15-29 mL/min/1.73 m 5. Kidney Failure EGFR <15 mL/min/1.73 m us Poly Horton DO LAB - CHEMISTRY ORDERABLES F inal Result [facility] [address] [phone] * HEPATITIS C ANTIBODY (07/28/2021 4:06 PM CDT) Interpretation Hepatitis C Antibody ALEXANDER Negative Negative 07/30/2021 9:15 PM CDT [facility] ([facility]) Comment: INTERPRETIVE INFORMATION: Hepatitis C Virus Antibody by ALEXANDER Index: 0.79 IV or less .................. Negative 0.80 to 0.99 IV .................. Equivocal 1.00 to 10.99 IV ................. Low Positive 11.00 IV or greater .............. High Positive Index Value (IV) = Anti-HCV signal to cutoff (S/C)ratio This assay should not be used for blood donor screening, associated re-entry protocols, or for screening Human Cells, Tissues and Cellular and Tissue-Based Products (HCT/P). Interpretation Hepatitis C Antibody Index 0.06 IV 07/30/2021 9:15 PM CDT [facility] [employer] ([facility]) Comment: Performed by [employer], [address] [place] [address] [email or web address], Britt Burks MD, Lab. Director Blood BLOOD SPECIMEN / Unknown Venipuncture / Unknown 07/28/2021 4:06 PM CDT 07/28/2021 4:06 PM CDT us Poly Horton DO LAB - CHEMISTRY ORDERABLES F inal Result [facility] [employer] ([facility]) [address] * (ABNORMAL) LIPID PROFILE (07/28/2021 4:06 PM CDT) Cholesterol 223(H) <200 mg/dL 07/28/2021 10:48 PM CDT [facility] Triglycerides 93 <150 mg/dL 07/28/2021 10:48 PM CDT [facility] VLDL Calculated 19 <31 mg/dL 2 10:48 PM CDT [facility] HDL Cholesterol 62 >40 mg/dL 2 10:48 PM CDT [facility] LDL Calculated 142 <160 mg/dL 07/28/2021 10:48 PM CDT [facility] Blood BLOOD SPECIMEN / Unknown Venipuncture / Unknown 07/28/2021 4:06 PM CDT 07/28/2021 4:06 PM CDT Narrative [facility] - 07/28/2021 10:48 PM CDT Lipid Profile Comment: *Risk Factors modify LDL Goals. Below is the desirable LDL goal for each combination of risk factors. 0-1 Risk Factor <160 mg/dL Multiple (2+) Risk Factors <130 mg/dL CHD or other forms of atherosclerosis <100 mg/dL Diabetes <100 mg/dL Note: This test is for fasting patients only. A non-fasting state may alter some of these results. us Poly Horton DO LAB - CHEMISTRY ORDERABLES F inal Result [facility] [address] [place] [address], [place] [phone] * HPV PROBE HIGH RISK BY TMA W/RFLX (11/06/2019 4:46 PM CDT) Human papillomavirus Source Not Provided 11/12/2019 10:29 AM CDT [facility] ([facility]) Comment: Specimen source was not provided. Please refer to the [employer] Test Directory for validated specimen source information: [email or web address]. Interpret results with caution. Human papillomavirus High Risk by TMA Invalid 11/12/2019 10:29 AM CDT [facility] ([facility]) Comment: Result is invalid possibly due to inhibiting or interfering substances. Repeat testing was performed and confirmed the original invalid result. Please recollect if clinically indicated. INTERPRETIVE INFORMATION: HPV High Risk by TMA, ThinPrep This test detects E6/E7 viral messenger RNA of the high-risk HPV types 16, 18, 31, 33, 35, 39, 45, 51, 52, 56, 58, 59, 66, and 68 associated with cervical cancer and its precursor lesions. Cross-reactivity with low-risk HPV genotypes 26, 67, 70, and 82 may occur. Sensitivity may be affected by specimen collection methods, stage of infection, and the presence of interfering substances. Results should be interpreted in conjunction with other available laboratory and clinical data. This test is intended for medical purposes only and is not valid for the evaluation of suspected sexual abuse or for other forensic purposes. HPV testing should not be used for screening or management of atypical squamous cells of undetermined significance (ASCUS) in women under age 21. Performed by [employer], [address] [place] [id number] [email or web address], Thad Hatfield MD, Lab. Director Other MICROSCOPIC CYTOLOGIC EXAMINATION OF SMEAR OF SPECIMEN FROM FEMALE GENITAL TRACT PREPARED USING PAPANICOLAOU TECHNIQUE / Unknown Collection / Unknown 11/06/2019 4:46 PM CDT 11/06/2019 4:46 PM CDT us Poly Horton DO LAB - MICROBIOLOGY ORDERABLE S Final Result [facility] [address] [place] [address], [place] * HIV-1 HIV-2 ANTIBODY + HIV P24 AG PANEL (04/14/2018 4:59 PM [employer]IN BARREL FILLER) HIV1/2 Ab + P24 Ag Non Reactive Non Reactive 04/17/2018 5:55 AM ROSIN BARREL FILLER [facility] Blood BLOOD SPECIMEN / Unknown Venipuncture / Unknown 04/14/2018 4:59 PM ROSIN BARREL FILLER 04/14/2018 4:59 PM ROSIN BARREL FILLER Narrative [facility] - 04/17/2018 5:55 AM [employer]IN BARREL FILLER HIV-1 p24 Ag and HIV-1/HIV-2 Ab not detected. us Poly Horton DO LAB - CHEMISTRY ORDERABLES F inal Result [facility] [address] [place], [place] [id number] [place] [address] from Last 3 Months or Most Recently Relevant to Health Maintenance Insurance [employer] * Guarantor: [employer] Account Type Relation to Patient Date of Phone Billing Address Company Employer ATTN:SHOBHA DUMONT [address] [facility] [address] [place] [address] Care Teams Thermodynamics Teacher Relationship Specialty Start Date End Date Simran Donis MD [facility] [address] [phone] PCP - General Emergency Medicine 08/23/23
--- OUTSIDE RECORDS SUMMARY | 2025-03-24 06:07 | XMS_ITS | Continuity of Care Document ---
Author Organization [facility] (Adult [facility]) Address [address] [place] [address] Assessment Encounter Date Assessment Date Assessment LastModified by Organization Details LastModified Time 01/22/2025 01/22/2025 Nuswab ordered. [email or web address] Not available 01/22/2025 18:11:35 Plan of Treatment Reminders Order Date Submit [...] Abnormal Flag Note LastModifiedBy Organization Detail LastModifiedTime 01/22/2001/23/2025 NUSWA B VG+, MARY ANN DA 6SP atopobium vaginae HIGH - 2 score abnormal Not Available [facility] ([facility]) [address] [place], [address], 01/24/2025 08:34:05 01/22/2001/23/2025 NUSWA B VG+, MARY ANN DA 6SP bvab 2 HIGH - 2 score abnormal Not Available [facility] ([facility]) [address] [place], [address], 01/24/2025 08:34:05 01/22/2001/23/2025 NUSWA B VG+, MARY [...] prese nce of BV. Not Available [facility] ([facility]) [address] [place], [address], 01/24/2025 08:34:05 01/22/2001/23/2025 NUA B VG+, MARY ANN DA 6SP bill albicans, BONIFACIO NEGATI VE negati ve Not Available [facility] ([facility]) [address] [place], [address], 01/24/2025 08:34:05 01/22/2001/23/2025 NUA B VG+, MARY ANN DA 6SP bill glabrata, BONIFACIO NEGATI VE negati ve Not Available [facility] ([facility]) [address] [place], [address], 01/24/2025 08:34:05 01/22/2001/24/2025 NUA B VG+, MARY ANN DA 6SP C parapsilosis /tropicalis NEGATI VE negati ve This assay does not diffe renti ate C. tropi calis and C. parap timi is. Not Available [facility] ([facility]) [address] [place], [address], 01/24/2025 08:34:05 01/22/20 25 01/24/2025 NUA B VG+, MARY ANN DA 6SP bill lusitaniae, BONIFACIO NEGATI VE negati ve Not Available [facility] ([facility]) [address] [facility] [place], [address], 01/24/2025 08:34:05 01/22/2001/24/2025 NUA B VG+, MARY ANN DA 6SP bill krusei, BONIFACIO NEGATI VE negati ve Not Available [facility] ([facility]) [address] [place], [address], 01/24/2025 08:34:05 01/22/2001/24/2025 NUA B VG+, MARY ANN DA 6SP trich vag by BONIFACIO NEGATI VE negati ve Not Available [facility] ([facility]) [address] [place], [address], 01/24/2025 08:34:05 01/22/2001/24/2025 NUA B VG+, MARY ANN DA 6SP chlamydia trachomatis, BONIFACIO NEGATI VE negati ve Not Available [facility] ([facility]) [address] [place], [address], 01/24/2025 08:34:05 01/22/2001/24/2025 NUA B VG+, MARY ANN DA 6SP neisseria gonorrhoeae, BONIFACIO NEGATI VE negati ve Not Available [facility] ([facility]) [address] [place], [address], 01/24/2025 08:34:05 Result Notes None recorded. Procedures Surgical History Date Name Laterality Status Provider Name and Address Organization Details Recorded Time Gastric Bypass completed Crystal Szymanski MA [facility] 01/17/2023 15:45:13 cholecystectomy completed Crystal aguirre MA [facility] 01/17/2023 15:45:25 Imaging Results None recorded. [...] Smoking Status Never Smoker Crystal Szymanski MA [facility], [place] - [facility] 01/17/2023 15:44:41 What Is [...] Response Coronary Artery Disease N Other N High Blood Pressure N Atrial Fibrillation N Thyroid Problems N Kidney or Bladder Problems N Depression N COPD N Blood Clots N GI Problems N Skin Problems N Eating Disorder N Anemia N Heart Attack (MD) N Diabetes N Anxiety Disorder N Muscle, Joint, or Bone Problems N Seizures/Epilepsy N Acid Reflux (GERD) N Cancer N Stroke N Allergies N Asthma N ADHD N Substance Abuse N High [...] Time OPV, trivalent 8 completed Not Available [facility] 03/19/2025 14:03:59 DTP 8 completed Not Available [facility] 03/19/2025 14:03:59 DTP 8 completed Not Available [facility] 03/19/2025 14:03:59 DTP 8 completed Not Available [facility] 03/19/2025 14:03:59 OPV, trivalent 8 completed Not Available [facility] 03/19/2025 14:03:59 MMR 0 completed Not Available [facility] 03/19/2025 14:03:59 OPV, trivalent 0 completed Not Available [facility] 03/19/2025 14:03:59 DTP 0 completed Not Available [facility] 03/19/2025 14:03:59 Td (adult), 2 Lf tetanus toxoid, preservative free, adsorbed 1 completed Not Available [facility] 03/19/2025 14:03:59 MMR 5 completed Not Available [facility] 03/19/2025 14:03:59 OPV, trivalent 5 completed Not Available [facility] 03/19/2025 14:03:59 Hep B, adult 1 completed Not Available [facility] 03/19/2025 14:03:59 Hep B, adult 2 completed Not Available [facility] 03/19/2025 14:03:59 Hep B, adult 3 completed Not Available [facility] 03/19/2025 14:03:59 Influenza, split virus, trivalent, preservative 3 completed Not Available [facility] 03/19/2025 14:03:59 Past Encounters Encounter ID Performer Location Encounter Start Date Encounter Closed Date Diagnosis/Indication Diagnosis SNOMED-CT Code Diagnosis ICD10 Code Diagnosis IMO Codes Diagnosis Note [id number] MD [facility] ([facility]ult [facility]) [address] [place] [phone] 01/22/2025 16:54:59 01/25/2025 03:47:23 Health Concerns Section Related Observation LastModified by Organization Detai ls LastModified Time None Recorded Concern Status LastModified by Organization Details LastModified Time None Recorded Payers Encounter Date Sequence Insurance Name Policy Number Policy Doll Covered Member ID Doll Member ID Guarantor Name 01/22/2025 1 [place] [id number] Jennifer Pang [id number] Jennifer Ghoshrett Notes Date Note Type Note Provider Name and Address Organization Details Recorded Time 01/22/2025 text/html ROS as noted in the HPI having vaginal odor Simran Donis MD Attn: Accounting,[address] [place], [address], [place] - [facility] 01/22/2025 18:12:11 OBGyn Episode No OBEpisode recorded.
--- OUTSIDE RECORDS SUMMARY | 2025-03-24 06:07 | XMS_ITS | Encounter Summary ---
Author Organization [facility] Address [address] [place] [address] Care Team Providers Care Iron Carrier Name Role Phone Simran Donis MD Primary Care Provider [phone] Encounter Details Date Type Department Care Team (Late st Contact Info) Description 03/19/2025 Lab Requisition [facility] [address] [place] [address] Simran Donis MD [place] [id number] Excessive and frequent menstruation with regular cycle Social History Tobacco Use Types Packs/Day Years Used Date Smoking Tobacco: Never Smokeless Tobacco: Never Alcohol Use Standard Drinks/Week Comments Yes 0 (1 standard drink = 0.6 oz pur e alcohol) occ. PHQ-2 Answer Date Recorded PHQ2 TOTAL SCORE 0 07/28/2021 Comments No Sex and Gender Information Value Date Recorded Sex Assigned at Not on file Legal Sex Female 1:39 PM ASSISTANT OCEANOGRAPHER Gender Identity Not on file Sexual Orientation Not on file documented as of this encounter Plan of Treatment Not on file documented as of this encounter Procedures Procedure Name Priority Date/Time Associated Diagnosis Comments CBC W AUTO DIFFERENTIAL STAT 03/19/2025 2:03 PM ASSISTANT OCEANOGRAPHER Excessive and frequent menstruation with regular cycle documented in this encounter Results * (ABNORMAL) CBC WITH DIFFERENTIAL (03/19/2025 2:03 PM ASSISTANT OCEANOGRAPHER) WBC 5.7 4.0 - 10.7 x10E9/L 03/19/2025 3:55 PM [facility] RBC Count 3.15(L) 3.90 - 5.20 x10E12/L 03/19/2025 3:55 PM [facility] Hemoglobin 8.2(L) 11.9 - 15.8 g/dL 03/19/2025 3:55 PM [facility] Hematocrit 26.3(L) 34.8 - 46.1 % 03/19/2025 3:55 PM [facility] MCV 83.5 80.0 - 98.0 fL 03/19/2025 3:55 PM [facility] MCH 26.0(L) 26.7 - 33.6 pg 03/19/2025 3:55 PM [facility] MCHC 31.2(L) 31.7 - 36.3 g/dL 03/19/2025 3:55 PM [facility] RDW-CV 17.1(H) 11.3 - 14.8 % 03/19/2025 3:55 PM [facility] Platelet Count 429(H) 150 - 420 x10E9/L 03/19/2025 3:55 PM [facility] MPV 9.8 7.8 - 11.4 fL 03/19/2025 3:55 PM [facility] Neutrophil % 44.0 41.0 - 74.0 % 03/19/2025 3:55 PM [facility] Lymphocyte % 42.3 17.0 [...] 1.00 - 4.40 x10E9/L 03/19/2025 3:55 PM ASSISTANT OCEANOGRAPHER [facility] Monocyte Absolute 0.54 0.15 - 1.00 x10E9/L 03/19/2025 3:55 PM ASSISTANT OCEANOGRAPHER [facility] Eosinophil Absolute 0.16 0.00 - 0.60 x10E9/L 03/19/2025 3:55 PM ASSISTANT OCEANOGRAPHER [facility] Basophil Absolute 0.07 0.00 - 0.13 x10E9/L 03/19/2025 3:55 PM ASSISTANT OCEANOGRAPHER [facility] Blood BLOOD SPECIMEN / Unknown 03/19/2025 2:03 PM ASSISTANT OCEANOGRAPHER 03/19/2025 3:54 PM ASSISTANT OCEANOGRAPHER us Simran Donis MD LAB - HEMATOLOGY ORDERABLES Fin al Result Performing Organization Address City/State/[facility] Co de Phone Number [facility] [address] [place] [address] documented in this encounter Visit Diagnoses Diagnosis Excessive and frequent menstruation with regular cycle Excessive or frequent menstruation documented in this encounter Care Teams Iron Carrier Relationship Specialty Start Date End Date Simran Donis MD [facility] [address] [address] PCP - General Emergency Medicine 08/23/23 documented as of this encounter
[2025-03-24 06:25] LABS: Immature Granulocyte Percent A 0.2 % (0-0.5); Lymphocytes Absolute Auto 2.27 K/mm3 (0.9-3.2); Mean Corpuscular HGB Conc 31.9 g/dl (32-36); Mean Corpuscular Hemoglobin 26.1 pg (26-34); Mean Corpuscular Volume 81.9 fl (80-100); Nucleated Red Blood Cells Absolute Auto 0.000 K/mm3 (0.0-0.012); Nucleated Red Blood Cells Perc 0.0 % (0.0-0.2); Platelet Count Result 406 k/mm3 (150-375); Red Blood Count 2.49 M/mm3 (4.2-5.4); White Blood Count 5.9 K/mm3 (4.5-10.0)
[2025-03-24 06:28] LABS: Hematocrit 20.4 % (37.0-47.0); Hemoglobin 6.5 g/dL (12.0-15.0)
[2025-03-24 06:37] LABS: INR 1.0; Prothrombin Time 13.1 Seconds (11.1-14.7)
[2025-03-24 06:38] LABS: Partial Thromboplastin Time 28.5 Seconds (22.3-36.8)
[2025-03-24 06:46] LABS: Alanine Aminotransferase 12 U/L (6-35); Albumin Level 3.7 g/dL (3.5-5.1); Alkaline Phosphatase 70 U/L (38-126); Anion Gap 4 mmol/L (4-12); Aspartate Amino Transferase 26 U/L (14-36); Bilirubin,Total 0.3 mg/dL (0.2-1.3); Blood Urea Nitrogen 10 mg/dL (7-17); Calcium 8.3 mg/dL (8.4-10.2); Carbon Dioxide 27 mmol/L (22-30); Chloride 106 mmol/L (98-107); Estimated CRCL calculation 99 ml/min; Estimated Glomerular Filt Rate > 60; Glucose 89 mg/dL (65-110); Potassium 3.5 mmol/L (3.4-5.0); Sodium 137 mmol/L (137-145); Total Protein 6.8 g/dL (6.3-8.2)
[2025-03-24 06:57] LABS: Beta HCG Quantitative < 2.39 mIU/ML
--- OUTSIDE RECORDS SUMMARY | 2025-03-24 07:04 | XMS_ITS | Clinical Summary ---
Author Organization [facility] Address [address] [place] [address] Care Team Providers Care Physician Locums Urgent Care Name Role Phone Simran Donis MD Primary Care Provider [phone] Source Comments [facility],non-owned Affiliates and Associated Physician Practices is amultiple site organization consisting of ambulatory clinics and hospital sitesin [place], [place], [place] and [place]. This disclosure is being madepursuant to the Care Everywhere program and may not contain all information available regarding this patient. Last updated 17.[facility] Allergies No known active allergies Medications * [...] Active vitamin D, ergocalciferol, (DRISDOL) 1.25 MG (63441 UT) capsule Take 1 (one) capsule by [...] Department Care Team Description 03/19/2025 Lab Requisition [facility] [address] [place] [id number] Simran Donis MD Excessive and frequent menstruation [...] on file Legal Sex Female 1:39 PM CONDITIONING MACHINE OPERATOR Gender Identity Not on file Sexual Orientation [...] W AUTO DIFFERENTIAL STAT 03/19/2025 2:03 PM CONDITIONING MACHINE OPERATOR Excessive and frequent menstruation with regular cycle [...] P24 AG PANEL Routine 04/14/2018 4:59 PM CONDITIONING MACHINE OPERATOR Screen for STD (sexually transmitted disease) from Last 3 Months or Most Recently Relevant to Health Maintenance Results * (ABNORMAL) CBC WITH DIFFERENTIAL (03/19/2025 2:03 PM CONDITIONING MACHINE OPERATOR) WBC 5.7 4.0 - 10.7 x10E9/L 03/19/2025 3:55 PM CONDITIONING MACHINE OPERATOR [facility] RBC Count 3.15(L) 3.90 - 5.20 x10E12/L 03/19/2025 3:55 PM CONDITIONING MACHINE OPERATOR [facility] Hemoglobin 8.2(L) 11.9 - 15.8 g/dL 03/19/2025 3:55 PM CONDITIONING MACHINE OPERATOR [facility] Hematocrit 26.3(L) 34.8 - 46.1 % 03/19/2025 3:55 PM CONDITIONING MACHINE OPERATOR [facility] MCV 83.5 80.0 - 98.0 fL 03/19/2025 3:55 PM CONDITIONING MACHINE OPERATOR [facility] MCH 26.0(L) 26.7 - 33.6 pg 03/19/2025 3:55 PM CONDITIONING MACHINE OPERATOR [facility] MCHC 31.2(L) 31.7 - 36.3 g/dL 03/19/2025 3:55 PM CONDITIONING MACHINE OPERATOR [facility] RDW-CV 17.1(H) 11.3 - 14.8 % 03/19/2025 3:55 PM CONDITIONING MACHINE OPERATOR [facility] Platelet Count 429(H) 150 - 420 x10E9/L 03/19/2025 3:55 PM CONDITIONING MACHINE OPERATOR [facility] MPV 9.8 7.8 - 11.4 fL 03/19/2025 3:55 PM CONDITIONING MACHINE OPERATOR [facility] Neutrophil % 44.0 41.0 - 74.0 % 03/19/2025 3:55 PM CONDITIONING MACHINE OPERATOR [facility] Lymphocyte % 42.3 17.0 - 47.0 % 03/19/2025 3:55 PM [facility] Monocyte % 9.5 3.0 - 11.0 % 03/19/2025 3:55 PM [facility] Eosinophil % 2.8 0.0 - 7.0 % 03/19/2025 3:55 PM [facility] Basophil % 1.2 0.0 - 1.6 % 03/19/2025 3:55 PM [facility] Immature Granulocytes % 0.2 0.0 - 1.0 % 03/19/2025 3:55 PM [facility] Neutrophil Absolute 2.50 1.60 - 7.50 x10E9/L 03/19/2025 3:55 PM [facility] Lymphocyte Absolute 2.40 1.00 - 4.40 x10E9/L 03/19/2025 3:55 PM [facility] Monocyte Absolute 0.54 0.15 - 1.00 x10E9/L 03/19/2025 3:55 PM [facility] Eosinophil Absolute 0.16 0.00 - 0.60 x10E9/L 03/19/2025 3:55 PM [facility] Basophil Absolute 0.07 0.00 - 0.13 x10E9/L 03/19/2025 3:55 PM [facility] Blood BLOOD SPECIMEN / Unknown 03/19/2025 2:03 PM CONDITIONING MACHINE OPERATOR 03/19/2025 3:54 PM CONDITIONING MACHINE OPERATOR us Simran Donis MD LAB - HEMATOLOGY ORDERABLES Fin al Result [facility] [address] [place] [address] * MAMMOGRAPHY ORDER (08/25/2021) Anatomical Region Laterality Modality Mammography us Scanned Document MAMMO ORDERABLES Final Result * (ABNORMAL) COMPREHENSIVE METABOLIC PANEL (07/28/2021 4:06 PM CDT) Sodium 139 136 - 145 mmol/L 07/28/2021 10:42 PM [facility] Potassium 3.9 3.5 - 5.1 mmol/L 07/28/2021 10:42 PM [facility] Chloride 107 98 - 107 mmol/L 07/28/2021 10:42 PM [facility] CO2 24 22 - 29 mmol/L 07/28/2021 10:42 PM [facility] Anion Gap 8(L) 9 - 16 mmol/L 07/28/2021 10:42 PM [facility] Glucose 100 70 - 105 mg/dL 07/28/2021 10:42 PM [facility] BUN 14 9.8 - 20.1 mg/dL 07/28/2021 10:42 PM [facility] Creatinine 0.76 0.57 - 1.11 mg/dL 07/28/2021 10:42 PM [facility] BUN/Creatinine Ratio 18.4(H) 11.2 - 18.1 07/28/2021 10:42 PM [facility] Calcium 9.1 8.4 - 10.2 mg/dL 07/28/2021 10:42 PM [facility] Protein Total 7.5 6.4 - 8.3 gm/dL 07/28/2021 10:42 PM [facility] Albumin 4.2 3.5 - 5.0 gm/dL 07/28/2021 10:42 PM [facility] ALT 13 0 - 55 U/L 07/28/2021 10:42 PM [facility] AST 18 5 - 34 U/L 07/28/2021 10:42 PM [facility] Alkaline Phosphatase 90 40 - 150 U/L 07/28/2021 10:42 PM [facility] Bilirubin Total 0.2 0.2 - 1.2 mg/dL 07/28/2021 10:42 PM [facility] Globulin Total 3.3 1.3 - 4.7 gm/dL 07/28/2021 10:42 PM [facility] Albumin/Globulin Ratio 1.3 1.1 - 2.2 07/28/2021 10:42 PM [facility] Osmolality Calculated 269 260 - 284 mOsm/kg 07/28/2021 10:42 PM [facility] eGFR by MDRD >60 >60 mL/min/1.7 3m2 07/28/2021 10:42 PM CDT [facility] eGFR by MDRD >60 >60 mL/min/1.7 3m2 07/28/2021 10:42 PM CDT [facility] Blood BLOOD SPECIMEN / Unknown Venipuncture / Unknown 07/28/2021 4:06 PM CDT 07/28/2021 4:06 PM CDT Narrative [facility] - 07/28/2021 10:42 PM CDT ADA Comment: The [place] [employer] recommends a fasting glucose concentration [...] LAB - CHEMISTRY ORDERABLES F inal Result [facility] [address] [phone] * HEPATITIS C ANTIBODY (07/28/2021 4:06 PM CDT) Interpretation Hepatitis C Antibody ALEXANDER Negative Negative 07/30/2021 9:15 PM CDT [facility] ([facility]) Comment: INTERPRETIVE INFORMATION: Hepatitis C Virus [...] Index 0.06 IV 07/30/2021 9:15 PM CDT [facility] [employer] ([facility]) Comment: Performed by [employer], [address] [place] [address] [email or web address], Britt Burks MD, Lab. Director Blood BLOOD SPECIMEN / Unknown Venipuncture / Unknown 07/28/2021 4:06 PM CDT 07/28/2021 4:06 PM CDT us Poly Horton DO LAB - CHEMISTRY ORDERABLES F inal Result [facility] [employer] ([facility]) [address] * (ABNORMAL) LIPID PROFILE (07/28/2021 4:06 PM CDT) Cholesterol 223(H) <200 mg/dL 07/28/2021 10:48 PM CDT [facility] Triglycerides 93 <150 mg/dL 07/28/2021 10:48 PM CDT [facility] VLDL Calculated 19 <31 mg/dL 2 10:48 PM CDT [facility] HDL Cholesterol 62 >40 mg/dL 2 10:48 PM CDT [facility] LDL Calculated 142 <160 mg/dL 07/28/2021 10:48 PM CDT [facility] Blood BLOOD SPECIMEN / Unknown Venipuncture / Unknown 07/28/2021 4:06 PM CDT 07/28/2021 4:06 PM CDT Narrative [facility] - 07/28/2021 10:48 PM CDT [...] LAB - CHEMISTRY ORDERABLES F inal Result [facility] [address] [place] [address], [facility] [phone] * HPV PROBE HIGH RISK BY TMA W/RFLX (11/06/2019 4:46 PM CDT) Human papillomavirus Source Not Provided 11/12/2019 10:29 AM CDT [email or web address] ([facility]) Comment: Specimen source was not provided. Please refer to the FRUCT Test Directory for validated specimen source information: [email or web address]. Interpret results with caution. Human papillomavirus High Risk by TMA Invalid 11/12/2019 10:29 AM CDT [email or web address] ([facility]) Comment: Result is invalid possibly due [...] in women under age 21. Performed by [employer], [address] [place] [id number] [email or web address], Thad Hatfield MD, Lab. Director Other MICROSCOPIC CYTOLOGIC EXAMINATION OF SMEAR OF SPECIMEN FROM FEMALE GENITAL TRACT PREPARED USING PAPANICOLAOU TECHNIQUE / Unknown Collection / Unknown 11/06/2019 4:46 PM CDT 11/06/2019 4:46 PM CDT us Poly Horton DO LAB - MICROBIOLOGY ORDERABLE S Final Result [facility] [address] [place] [address], [facility] * HIV-1 HIV-2 ANTIBODY + HIV P24 AG PANEL (04/14/2018 4:59 PM CONDITIONING MACHINE OPERATOR) HIV1/2 Ab + P24 Ag Non Reactive Non Reactive 04/17/2018 5:55 AM CONDITIONING MACHINE OPERATOR [facility] Blood BLOOD SPECIMEN / Unknown Venipuncture / Unknown 04/14/2018 4:59 PM CONDITIONING MACHINE OPERATOR 04/14/2018 4:59 PM CONDITIONING MACHINE OPERATOR Narrative [facility] - 04/17/2018 5:55 AM CONDITIONING MACHINE OPERATOR HIV-1 p24 Ag and HIV-1/HIV-2 Ab not detected. us Poly Horton DO LAB - CHEMISTRY ORDERABLES F inal Result [facility] [address] [place], [place] [id number] [place] [address] from Last 3 Months or Most Recently Relevant to Health Maintenance Insurance [employer] * Guarantor: VERONIKA [employer] Account Type Relation to Patient Date of Phone Billing Address Company Employer ATTN:SHOBHA DUMONT [address] [facility] [place] [address] Care Teams Physician Locums Urgent Care Relationship Specialty Start Date End Date Simran Donis MD [facility] [address] [id number] PCP - General Emergency Medicine 08/23/23
--- OUTSIDE RECORDS SUMMARY | 2025-03-24 07:04 | XMS_ITS | Clinical Summary ---
Author Organization [facility] Address [address] [place] [address] Phone Care Team Providers Care Travel Assistant Name Role Phone Simran Donis MD Primary Care Provider [phone] Allergies No known active allergies Medications No [...] on file Legal Sex Female 3:11 AM FELLMONGERY WORKER Gender Identity Not on file Sexual Orientation Not on file Last Filed Vital Signs Vital Sign Reading Time Taken Comments Blood Pressure 124/77 05/23/2013 4:51 PM FELLMONGERY WORKER Pulse 98 05/23/2013 4:51 PM FELLMONGERY WORKER Temperature 36.5 C (97.7 F) 05/23/2013 4:51 PM FELLMONGERY WORKER Respiratory Rate 18 05/23/2013 4:51 PM FELLMONGERY WORKER Oxygen Saturation 98% 05/23/2013 4:51 PM FELLMONGERY WORKER Inhaled Oxygen Concentration - - Weight 95.3 kg (210 lb) 05/23/2013 4:51 PM FELLMONGERY WORKER s bertin Height 167.6 cm (5' 6) 05/23/2013 4:51 PM FELLMONGERY WORKER Body Mass Index 33.89 05/23/2013 4:51 PM FELLMONGERY WORKER Plan of Treatment Health Maintenance Due Date [...] Procedure Name Priority Date/Time Associated Diagnosis Comments [facility] SCREENING BILATERAL DIGITAL W CAD W EMMETT Routine 09/21/2024 2:22 PM CDT Encounter for screening mammogram for malignant neoplasm of breast from Last 3 Months or Most Recently Relevant to Health Maintenance Results * [facility] SCREENING BILATERAL DIGITAL W CAD W EMMETT (09/21/2024 2:22 PM CDT) Anatomical Region Laterality Modality breast Bilateral Mammography 09/21/2024 2:19 PM CDT Narrative 09/24/2024 2:20 PM CDT - [facility] SCREENING BILATERAL DIGITAL W CAD W EMMETT [...] is made to exams dated: 02/21/2023, 02/21/2023 [facility], and 08/25/2021 [facility]. Breast MRI 07/16/24 BREAST TISSUE:The breasts are [...] signed by: Shy Delaney M.D. ab/:09/21/2024 19:02:08 Heavy Equipment Sales Associate(s): RT Petty(R)(M), [facility] letter sent: Normal Exam Reading location: [facility] Mammogram BI-RADS: Category 2: Benign [...] is made to exams dated: 02/21/2023, 02/21/2023 [facility], and 08/25/2021 [facility]. Breast MRI 07/16/24 BREAST TISSUE:The breasts are [...] signed by: Shy Delaney M.D. ab/:09/21/2024 19:02:08 Heavy Equipment Sales Associate(s): RT Petty(R)(M), [facility] letter sent: Normal Exam Reading location: [facility] Mammogram BI-RADS: Category 2: Benign Simran Donis MD IMG MAMMO ORDERABLES Final Re sult from Last 3 Months or Most Recently Relevant to Health Maintenance [place] [address] [place] [address] BREAST CERVICAL CANCER Care Teams Travel Assistant Relationship Specialty Start Date End Date Simran Donis MD [address] [place] [address] PCP - General Family Medicine 02/21/23
--- OUTSIDE RECORDS SUMMARY | 2025-03-24 07:04 | XMS_ITS | Clinical Summary ---
Author Organization [facility] Address [address] [facility] [place] [address] Care Team Providers Care Rotary Driller Name Role Phone Unavailable Primary Care Provider [...]
--- OUTSIDE RECORDS SUMMARY | 2025-03-24 07:04 | XMS_ITS | Encounter Summary ---
Author Organization [facility] Address [address] [place] [address] Phone Care Team Providers Care Pharmacy Salesperson Name Role Phone Simran Donis MD Primary Care Provider [phone] Encounter Details Date Type Department Care Team (Late st Contact Info) Description 01/28/2023 Transcribe Orders [facility] Central Scheduling [address] [place] [address] [place] [address] [place] [id number] Social History Tobacco Use Types Packs/Day Years Used Date Smoking Tobacco: Never Smokeless Tobacco: Never Alcohol Use Standard Drinks/Week Comments Not Asked 0 (1 standard drink = 0.6 oz pur e alcohol) Comments Unknown Sex and Gender Information Value Date Recorded Sex Assigned at Not on file Legal Sex Female 3:11 AM CERTIFIED PERSONAL CHEF Gender Identity Not on file Sexual Orientation Not on file documented as of this encounter Plan of Treatment Not on file documented as of this encounter Visit Diagnoses Not on filedocumented in this encounter Care Teams Pharmacy Salesperson Relationship Specialty Start Date End Date Simran Donis MD [address] [place] [address] PCP - General Family Medicine 02/21/23 documented as of this encounter
--- OUTSIDE RECORDS SUMMARY | 2025-03-24 07:04 | XMS_ITS | Encounter Summary ---
Author Organization [facility] Address [address] [place] [address] Care Team Providers Care Fuel Cell Assembler Name Role Phone Simran Donis MD Primary Care Provider [phone] Encounter Details Date Type Department Care Team (Late st Contact Info) Description 03/19/2025 Lab Requisition [facility] [address] [place] [address] Simran Donis MD [place] [phone] Excessive and frequent menstruation with regular cycle [...] on file Legal Sex Female 1:39 PM WOOD DRILL OPERATOR Gender Identity Not on file Sexual Orientation Not on file documented as of this encounter Plan of Treatment Not on file documented as of this encounter Procedures Procedure Name Priority Date/Time Associated Diagnosis Comments CBC W AUTO DIFFERENTIAL STAT 03/19/2025 2:03 PM WOOD DRILL OPERATOR Excessive and frequent menstruation with regular cycle documented in this encounter Results * (ABNORMAL) CBC WITH DIFFERENTIAL (03/19/2025 2:03 PM WOOD DRILL OPERATOR) WBC 5.7 4.0 - 10.7 x10E9/L 03/19/2025 3:55 PM [facility] RBC Count 3.15(L) 3.90 - 5.20 x10E12/L 03/19/2025 3:55 PM [facility] Hemoglobin 8.2(L) 11.9 - 15.8 g/dL 03/19/2025 3:55 PM [facility] Hematocrit 26.3(L) 34.8 - 46.1 % 03/19/2025 3:55 PM [facility] MCV 83.5 80.0 - 98.0 fL 03/19/2025 3:55 PM [facility] MCH 26.0(L) 26.7 - 33.6 pg 03/19/2025 3:55 PM [facility] MCHC 31.2(L) 31.7 - 36.3 g/dL 03/19/2025 3:55 PM [facility] RDW-CV 17.1(H) 11.3 - 14.8 % 03/19/2025 3:55 PM [facility] Platelet Count 429(H) 150 - 420 x10E9/L 03/19/2025 3:55 PM [facility] MPV 9.8 7.8 - 11.4 fL 03/19/2025 3:55 PM [facility] Neutrophil % 44.0 41.0 - 74.0 % 03/19/2025 3:55 PM [facility] Lymphocyte % 42.3 17.0 - 47.0 % 03/19/2025 3:55 PM [facility] Monocyte % 9.5 3.0 - 11.0 % 03/19/2025 3:55 PM [facility] Eosinophil % 2.8 0.0 - 7.0 % 03/19/2025 3:55 PM [facility] Basophil % 1.2 0.0 - 1.6 % 03/19/2025 3:55 PM [facility] Immature Granulocytes % 0.2 0.0 - 1.0 % 03/19/2025 3:55 PM [facility] Neutrophil Absolute 2.50 1.60 - 7.50 x10E9/L 03/19/2025 3:55 PM [facility] Lymphocyte Absolute 2.40 1.00 - 4.40 x10E9/L 03/19/2025 3:55 PM WOOD DRILL OPERATOR [facility] Monocyte Absolute 0.54 0.15 - 1.00 x10E9/L 03/19/2025 3:55 PM WOOD DRILL OPERATOR [facility] Eosinophil Absolute 0.16 0.00 - 0.60 x10E9/L 03/19/2025 3:55 PM WOOD DRILL OPERATOR [facility] Basophil Absolute 0.07 0.00 - 0.13 x10E9/L 03/19/2025 3:55 PM WOOD DRILL OPERATOR [facility] Blood BLOOD SPECIMEN / Unknown 03/19/2025 2:03 PM WOOD DRILL OPERATOR 03/19/2025 3:54 PM WOOD DRILL OPERATOR us Simran Donis MD LAB - HEMATOLOGY ORDERABLES Fin al Result Performing Organization Address City/State/[facility] Co de Phone Number [facility] [address] [place] [address] documented in this encounter Visit Diagnoses Diagnosis Excessive and frequent menstruation with regular cycle Excessive or frequent menstruation documented in this encounter Care Teams Fuel Cell Assembler Relationship Specialty Start Date End Date Simran Donis MD [facility] [address] [address] PCP - General Emergency Medicine 08/23/23 documented as of this encounter
--- NOTE | 2025-03-24 08:17 | ED.GENADULT ---
HPI - General Adult General Chief complaint: Vaginal Bleeding Stated complaint: vaginal bleedingx2 weeks Time Seen by Provider: 03/24/25 06:51 History of Present Illness HPI narrative: 49-year-old female present to the emergency department for evaluation for heavy vaginal bleeding that has been ongoing for approximately last 2 weeks. Patient has been having some intermittent abdominal pain but denies any abdominal pain at this time. Patient has been having some associated lightheaded dizziness as well. Patient does have history of regular periods but no history of heavy periods. Patient is resting comfortably at time of evaluation. Patient is not on any blood thinners. Patient's hemoglobin on file as closer to 13 Related Data Allergies Allergy/AdvReac Type Severity Reaction Status Date / Time No Known Allergies Allergy Verified 03/24/25 06:11 Review of Systems Review of Systems: All systems reviewed & are unremarkable except as noted in HPI and below Exam Narrative: APPEARANCE: Well appearing, no pain, no distress, well-nourished. HEAD: normocephalic, atraumatic. EYES: PERRLA/EOMI, conjunctivae clear. NECK: Supple. No adenopathy, no masses. RESPIRATORY: Airway patent, respirations nonlabored. Clear to auscultation bilaterally, no rales, rhonchi, wheezing. CARDIOVASCULAR: Regular rate and rhythm without murmurs rubs or gallops. ABDOMINAL: Soft, nontender, nondistended, normal bowel sounds MUSCULOSKELETAL: Moves all extremities. Strength/ROM intact, No edema, No calf tenderness. NEURO: Alert. Cranial nerves II through XII intact. Good gait. Good coordination SKIN: Warm, dry. Normal Color Pelvic exam: Vaginal bleeding into the vaginal vault with no rapid refilling. Course Vital Signs Vital signs: Vital Signs Temperature 97.8 F 03/24/25 06:05 Pulse Rate 77 03/24/25 06:05 Respiratory Rate 18 03/24/25 06:05 Blood Pressure 124/51 L 03/24/25 06:05 Pulse Oximetry 100 03/24/25 06:05 Oxygen Delivery Room Air 03/24/25 06:05 Temperature 97.9 F 03/24/25 13:03 Pulse Rate 79 03/24/25 13:03 Respiratory Rate 18 03/24/25 13:03 Blood Pressure 102/67 03/24/25 13:03 Pulse Oximetry 100 03/24/25 13:03 Oxygen Delivery Room Air 03/24/25 06:05 [facility] Narrative Medical decision making narrative: 49-year-old female presents to the emergency department for evaluation for heavy vaginal bleeding over the last 2 weeks. On pelvic exam patient did have some blood in the vaginal vault but no active refilling and no hemorrhage. Patient's hemoglobin was less than 7 and patient was transfused with 2 units packed red blood cells. Patient did have an ultrasound that showed endometrial cavity containing anechoic fluid with heterogeneous nonvascular endoluminal material most compatible with blood products in the setting of active heavy vaginal bleeding. Differential Diagnosis Differential Diagnosis: Vaginal bleeding, retained products, uterine mass, fibroid Lab Data [facility] Lab Attestation statement: I personally reviewed the patient's lab results. 03/24/25 06:20 03/24/25 06:20 Labs: Lab Results 03/24/25 03/24/25 Range/Units 06:20 08:03 WBC 5.9 (4.5-10.0) K/mm3 RBC 2.49 L (4.2-5.4) M/mm3 Hgb 6.5 L* D (12.0-15.0) g/dL Hct 20.4 L* (37.0-47.0) % MCV 81.9 (80-100) fl MCH 26.1 (26-34) pg MCHC 31.9 L (32-36) g/dl RDW 16.5 H (11.5-14.5) % Plt Count 406 H (150-375) k/mm3 MPV 9.4 (7.4-10.4) fl Immature Gran % (Auto) 0.2 (0-0.5) % Neut % (Auto) 46.6 (45.5-73.1) % Lymph % (Auto) 38.3 (18.3-44.2) % [place] % (Auto) 9.8 H (2.6-8.5) % Eos % (Auto) 4.6 H (0-4.4) % Baso % (Auto) 0.5 (0.2-1.2) % Lymph # (Auto) 2.27 (0.9-3.2) K/mm3 [place] # (Auto) 0.6 (0.1-0.6) K/mm3 Eos # (Auto) 0.3 (0-0.3) K/mm3 Baso # (Auto) 0.0 (0.0-0.1) K/mm3 Abs Immat Gran (auto) 0.01 (0.00-0.031) K/mm3 Absolute Neuts (auto) 2.8 (1.3-6.7) K/mm3 Absolute Nucleated RBC 0.000 (0.0-0.012) K/mm3 Nucleated RBC % 0.0 (0.0-0.2) % PT 13.1 (11.1-14.7) Seconds INR 1.0 APTT 28.5 (22.3-36.8) Seconds Sodium 137 (137-145) mmol/L Potassium 3.5 (3.4-5.0) mmol/L Chloride 106 (98-107) mmol/L Carbon Dioxide 27 (22-30) mmol/L Anion Gap 4 (4-12) mmol/L BUN 10 (7-17) mg/dL Creatinine 0.65 L (0.7-1.0) mg/dL Estim Creat Clear Calc 99 ml/min Estimated GFR > 60 (59 - ) Glucose 89 (65-110) mg/dL Calcium 8.3 L (8.4-10.2) mg/dL Total Bilirubin 0.3 (0.2-1.3) mg/dL AST 26 (14-36) U/L ALT 12 (6-35) U/L Alkaline Phosphatase 70 (38-126) U/L Total Protein 6.8 (6.3-8.2) g/dL Albumin 3.7 (3.5-5.1) g/dL Beta HCG, Quant < 2.39 mIU/ML Urine Color Yellow (Yellow) Urine Appearance Clear (Clear) Urine pH 7.0 (5.0-9.0) Ur Specific [place] 1.006 (1.001-1.035) Urine Protein Negative (Negative) mg/dL Urine Glucose (UA) Negative (Negative) mg/dL Urine Ketones Negative (Negative) mg/dL Ur Blood (Man) 2+ H (Negative) Urine Nitrate Negative (Negative) Urine Bilirubin Negative (Negative) Urine Urobilinogen 0.2 (<2.0) mg/dL Leukocyte Esterase Rfl Negative (Negative) MAICOL/UL Urine RBC 0-2 (0-2) /hpf Urine WBC 0-5 (0-3) /hpf Ur Squamous Epith Cells None seen (Few) /hpf Urine Bacteria None seen /hpf Urine Casts 0-2 Blood Type A Positive Antibody Screen Negative Crossmatch See Detail Discharge Plan Discharge Clinical Impression: Vaginal bleeding Patient Disposition: Home Condition: Stable Instructions: Antibiotic Form, Abnormal (Dysfunctional) Uterine Bleeding (ED) Additional Instructions: Have close follow-up with OB Gyne as outpatient. Tranexamic acid as directed until completed. Patient Language: Palauan Prescriptions: New tranexamic acid 650 mg tablet 650 mg PO Q12H 5 Days Qty: 10 0RF No Action potassium chloride 20 mEq tablet extended release 20 meq PO BID Qty: 10 0RF pantoprazole [Protonix] 40 mg tablet,delayed release (DR/EC) 40 mg PO QAM 30 Days Qty: 30 0RF dicyclomine 20 mg tablet 20 mg PO QID Qty: 20 0RF Follow-up/Referrals: Jewels,Simran Varma MD [Primary Care Provider, Unknown] Becky Gomez MD [Physician, WASTE HANDLING TECHNICIAN]
[2025-03-24 08:18] LABS: Add Urine Microscopic? YES; Appearance Urine Clear (Clear); Glucose Urine UA Negative (Negative); Leukocyte Esterase Ur Negative LEU/UL (Negative); Nitrate Urine Negative (Negative); Non Pathogenic Casts 0-2; Specific Grav Ur 1.006 (1.001-1.035)
[2025-03-24] MEDS: ACETAMINOPHEN 500 MG TABLET 1000 MG PO (08:20)
[2025-03-24] MEDS: SODIUM CHLORIDE 0.9% IV 250 ML 30 ML IV CONT (08:45)
[2025-03-24] MEDS: SODIUM CHLORIDE 0.9% IV 250 ML 30 ML (10:54)
--- NOTE | 2025-03-24 11:43 | PC.NURSE ---
Spoke with [facility] about patients ultrasound, they state they will jarett it has stat to be read and expedited.
[2025-03-24] MEDS: TRANEXAMIC ACID 1,000 MG/10 ML AMPUL 600 MG IV PUSH (12:30)
== END 2025-03-24 13:09 | disposition home or self-care (01) ==
PROVIDERS: Student in an Organized Health Care Education/Training Program; Emergency Provider Emergency Medicine; PCP Emergency Medicine
DX: N93.9 Abnormal uterine and vaginal bleeding, unspecified (principal)
CPT/HCPCS: 36415; 36430; 76830; 76856; 80053; 81001; 84702; 85025; 85610; 85730; 86850; 86900; 86901; 86923; 96361; 96374; 99285; A9270; J3290; J7050; P9016